=== PATIENT | male | born 1990 ===

== ENCOUNTER 2017-06-02 14:41 | Emergency (ER) | payer MEDICAID ==
[2017-06-02 14:45] VITALS: BP 164/63; PULSE 103; RESP 16; TEMP 98.8; O2SAT 100
--- NOTE | 2017-06-02 15:08 | ED PDOC ---
HPI: Dental Pain/Injury Time Seen by Provider: 06/02/17 14:43 Chief Complaint (Nursing): Dental Pain Chief Complaint (Provider): Dental Pain History Per: Patient History/Exam Limitations: no limitations Onset/Duration Of Symptoms: Days (x1) Current Symptoms Are (Timing): Gone Now Pain Scale Rating Of: 3 Quality: "Pain" Additional Complaint(s): Jacob Cash, a 26 year old male, presents to the ED complaining of left sided facial swelling and pain. The patient states that 3 months ago he sustained a broken tooth and since then the pain has been intermittent. Patient states he has taken advil for pain and used ice therapy for the swelling. Past Medical History Reviewed: Historical Data, Nursing Documentation, Vital Signs Vital Signs: Last Vital Signs Temp 98.8 F 06/02/17 14:44 Pulse 103 H 06/02/17 14:44 Resp 16 06/02/17 14:44 BP 164/63 H 06/02/17 14:44 Pulse Ox 100 06/02/17 14:44 - Medical History PMH: No Chronic Diseases - Surgical History Surgical History: No Surg Hx - Family History Family History: States: Unknown Family Hx - Social History Current smoker - smoking cessation education provided: No (quit 10 months ago) Ex-Smoker (has not smoked in the last 12 months): No Alcohol: None Drugs: Denies - Home Medications Home Medications: Ambulatory Orders Medication Instructions Recorded Amoxicillin 875 mg PO BID #20 tab 06/02/17 Ibuprofen [Motrin Tab] 800 mg PO Q6H PRN #20 tab 06/02/17 - Allergies Allergies/Adverse Reactions: Allergies Allergy/AdvReac Type Severity Reaction Status Date / Time No Known Allergies Allergy Verified 06/02/17 14:46 Review of Systems ROS Statement: Except As Marked, All Systems Reviewed And Found Negative ENT: Positive for: Mouth Swelling (left sided) Physical Exam - Reviewed Nursing Documentation Reviewed: Yes Vital Signs Reviewed: Yes - Physical Exam Appears: Positive for: Non-toxic, No Acute Distress Head Exam: Positive for: ATRAUMATIC, NORMAL INSPECTION, NORMOCEPHALIC Skin: Positive for: Normal Color, Warm, Dry. Negative for: Diaphoresis Eye Exam: Positive for: Normal appearance ENT: Positive for: Other (Fractured left lower tooth with dental decay noted; Mild erythema of the gingiva; No abscess seen or palpated.) Neurologic/Psych: Positive for: Alert, Oriented, Gait - ECG O2 Sat by Pulse Oximetry: 100 (RA) Pulse Ox Interpretation: Normal Medical Decision Making Medical Decision Makin Initial Impression 26 y/o female presenting with left sided facial pain Initial Plan: * Reevaluation 1450 Patient is medically stable and will be discharged home with prescription for antibiotics and pain medication and instructions to follow up with the dentist. Scribe Attestation Documented by Monika Peralta acting as a scribe for Rose Ricks PA-C. Scribe Attestation All medical record entries made by the Scribe were at my direction and personally dictated by me. I have reviewed the chart and agree that the record accurately reflects my personal performance of the history, physical exam, medical decision making, and the department course for this patient. I have also personally directed, reviewed, and agree with the discharge instructions and disposition. Disposition - Clinical Impression Clinical Impression: Dental decay, Toothache - Patient ED Disposition Is Patient to be Admitted: No Counseled Patient/Family Regarding: Diagnosis, Rx Given - Disposition Disposition: Routine/Home Disposition Time: 15:06 Condition: STABLE Prescriptions: Amoxicillin 875 mg PO BID #20 tab Ibuprofen [Motrin Tab] 800 mg PO Q6H PRN #20 tab PRN Reason: Pain Instructions: Toothache (ED) Forms: [facility] ([place]guillan) - POA Present On Arrival: None
== END 2017-06-02 15:06 | disposition home or self-care (01) ==
LOC: H.ER 14:41
DX: K02.9 Dental caries, unspecified (principal); K08.89 Other specified disorders of teeth and supporting structures; S02.5XXA Fracture of tooth (traumatic), initial encounter for closed fracture

== ENCOUNTER 2018-01-01 16:01 | Emergency (ER) | payer MEDICAID ==
[2018-01-01 16:17] VITALS: O2SAT 100
--- NOTE | 2018-01-01 16:25 | ED PDOC ---
HPI: General Adult Time Seen by Provider: 01/01/18 16:20 Chief Complaint (Nursing): Abnormal Skin Integrity Chief Complaint (Provider): Abscess History Per: Patient History/Exam Limitations: no limitations Onset/Duration Of Symptoms: Days Current Symptoms Are (Timing): Still Present Additional Complaint(s): 27 year old male presents to the emergency department with a complaint of an abscess noted to the right axillary region for the past several days. Reports he was showering today when it ruptured and has been draining since. Denies fever or any further medical complaints. Tetanus shot is not up to date Of note, patient has a medical history of HIV and is complaint with antiviral medications. Viral count load undetectable. CD4 count is high as per patient. Past Medical History Reviewed: Historical Data, Nursing Documentation, Vital Signs Vital Signs: Last Vital Signs Temp 98 F 01/01/18 17:47 Pulse 89 01/01/18 17:47 Resp 18 01/01/18 17:47 BP 120/68 01/01/18 17:47 Pulse Ox 100 01/01/18 17:47 - Medical History PMH: HIV (Viral count: load undetectable. CD4 count is high as per patient. ) - Surgical History Surgical History: No Surg Hx - Family History Family History: States: Unknown Family Hx - Social History Current smoker - smoking cessation education provided: No Ex-Smoker (has not smoked in the last 12 months): Yes Alcohol: None Drugs: Denies - Home Medications Home Medications: Ambulatory Orders Medication Instructions Recorded Amoxicillin 875 mg PO BID #20 tab 06/02/17 Ibuprofen [Motrin Tab] 800 mg PO Q6H PRN #20 tab 06/02/17 Cephalexin [Keflex] 500 mg PO Q6 #28 capsule 01/01/18 Sulfamethoxazole/Trimethoprim 2 tab PO BID #28 tab 01/01/18 [Bactrim DS 800 mg-160 mg] - Allergies Allergies/Adverse Reactions: Allergies Allergy/AdvReac Type Severity Reaction Status Date / Time No Known Allergies Allergy Verified 01/01/18 16:14 Review of Systems ROS Statement: Except As Marked, All Systems Reviewed And Found Negative (As per HPI, otherwise negative) Constitutional: Negative for: Fever Skin: Positive for: Other (Abscess to the right axilla) Physical Exam - Reviewed Nursing Documentation Reviewed: Yes Vital Signs Reviewed: Yes - Physical Exam Comments: GENERAL APPEARANCE: Patient is awake, alert, oriented x 3, in mild painful distress. Skin: warm and dry, (+) 6x4 cm erythematous tender fluctuant draining abscess to the right axilla Pulmonary: lungs clear, no rhonchi, no wheezing. Cardiac: regular rate and rhythm, no murmur, no gallop. Abdomen: soft, nontender. Extremities: no deformity, full range of motion, no tenderness. - ECG O2 Sat by Pulse Oximetry: 100 (RA) Pulse Ox Interpretation: Normal Medical Decision Making Medical Decision Making: Time: 1623 Initial impression: Abscess Initial plan: Keflex 500 mg PO Lidocaine 1% 5 ml IJ Bactrim DS 2 tab PO Tetanus 0.5 ml IM Incision and drainage Procedure can be found in I&D tab within chart. Time: 1740 I&D completed by [facility]. Patient tolerated procedure well. Medically clear for discharge with Rx Keflex 500 mg and Bactrim DS 800mg-160 mg. Advised to follow up with primary care physician after 2 days without fail or with Dr. Darío Soriano MD for wound check and packing removal. Advised to take medication as prescribed. Return to the emergency room at any time for any new or worsening symptoms. Patient states he fully agrees with and understands discharge instructions. States that he agrees with the plan and disposition. Verbalized and repeated discharge instructions and plan. I have given the patient opportunity to ask any additional questions. Clinical Impression: Abscess Scribe Attestation: Documented by Sindy Williamson, acting as a scribe for Kellie Finley PA-C. Provider Scribe Attestation: All medical record entries made by the Scribe were at my direction and personally dictated by me. I have reviewed the chart and agree that the record accurately reflects my personal performance of the history, physical exam, medical decision making, and the department course for this patient. I have also personally directed, reviewed, and agree with the discharge instructions and disposition. Disposition - Clinical Impression Clinical Impression: Abscess - Patient ED Disposition Is Patient to be Admitted: No Counseled Patient/Family Regarding: Diagnosis, Need For Followup, Rx Given - Disposition Referrals: Darío Soriano MD [Staff Provider] - Disposition: Routine/Home Disposition Time: 17:40 Condition: STABLE Additional Instructions: Thank you for letting us take care of you today. You were treated for abscess. The emergency medical care you received today was directed at your acute symptoms. If you were prescribed any medication, please fill it and take as directed. It may take several days for your symptoms to resolve. Return to the Emergency Department if your symptoms worsen, do not improve, or if you have any other problems. Please contact your doctor in 2 days for re-evaluation and follow up / or call one of the physicians/clinics you have been referred to that are listed on the Patient Visit Information form that is included in your discharge packet. Bring any paperwork you were given at discharge with you along with any medications you are taking to your follow up visit. Our treatment cannot replace ongoing medical care by a primary care provider (PCP) outside of the emergency department. Thank you for allowing the [facility] team to be part of your care today. 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 - Incision & Drainage Of Abscess Anesthesia: Lidocaine 1% Prep Used: Betadine Procedure: Incised W/Scalpel Blade#: (11), Drained Pus (purulent material), Packed W/Gauze (applied clean dressing)
[2018-01-01] MEDS ORDERED: Tmp-Smz 800 mg-160 mg DS Tab PO STA (16:35)
[2018-01-01] MEDS ORDERED: Lidocaine 1% Inj (20ml) IJ ONE (16:36)
[2018-01-01] MEDS ORDERED: Tdap Vaccine 0.5 ml Vial (10-64 yrs) IM ONE ×2 (16:36→17:05)
[2018-01-01] MEDS ORDERED: Tmp-Smz 800 mg-160 mg DS Tab ONE ×2 (17:04→17:11)
[2018-01-01] MEDS ORDERED: Lidocaine 1% Inj (20ml) ONE (17:05)
[2018-01-01 17:48] VITALS: BP 120/68; PULSE 89; RESP 18; TEMP 98
== END 2018-01-01 17:48 | disposition home or self-care (01) ==
LOC: H.ER 16:01
DX: L02.411 Cutaneous abscess of right axilla (principal)

== ENCOUNTER 2018-03-05 11:16 | Emergency (ER) | payer MEDICAID ==
[2018-03-05 11:49] VITALS: BP 135/66; PULSE 110; RESP 20; TEMP 98.5; O2SAT 100
--- NOTE | 2018-03-05 12:25 | ED PDOC ---
HPI: General Adult Time Seen by Provider: 03/05/18 12:10 Chief Complaint (Nursing): ENT Problem Chief Complaint (Provider): ENT Problem History Per: Patient History/Exam Limitations: no limitations Onset/Duration Of Symptoms: Days (x5) Current Symptoms Are (Timing): Still Present Additional Complaint(s): 27 year old male, with a hx of HIV, presents to the ED for evaluation of throat pain onset five days ago. Patient notes he is non-compliant with HIV medications. He reports being able to tolerate PO, and denies fever and chills. PMD: none provided Past Medical History Reviewed: Historical Data, Nursing Documentation, Vital Signs Vital Signs: Last Vital Signs Temp 98.5 F 03/05/18 11:47 Pulse 110 H 03/05/18 11:47 Resp 20 03/05/18 11:47 BP 135/66 03/05/18 11:47 Pulse Ox 100 03/05/18 16:49 - Medical History PMH: HIV (Viral count: load undetectable. CD4 count is high as per patient. ) - Surgical History Surgical History: No Surg Hx - Family History Family History: States: Unknown Family Hx - Home Medications Home Medications: Ambulatory Orders Medication Instructions Recorded Amoxicillin 875 mg PO BID #20 tab 06/02/17 Ibuprofen [Motrin Tab] 800 mg PO Q6H PRN #20 tab 06/02/17 Cephalexin [Keflex] 500 mg PO Q6 #28 capsule 01/01/18 Sulfamethoxazole/Trimethoprim 2 tab PO BID #28 tab 01/01/18 [Bactrim DS 800 mg-160 mg] Fluconazole 200 mg PO DAILY #7 tablet 03/05/18 Penicillin VK [Penicillin VK Tab] 1 tab PO QID #40 tab 03/05/18 - Allergies Allergies/Adverse Reactions: Allergies Allergy/AdvReac Type Severity Reaction Status Date / Time No Known Allergies Allergy Verified 03/05/18 11:46 Review of Systems ROS Statement: Except As Marked, All Systems Reviewed And Found Negative Constitutional: Negative for: Fever, Chills ENT: Positive for: Throat Pain Physical Exam - Reviewed Nursing Documentation Reviewed: Yes Vital Signs Reviewed: Yes - Physical Exam Appears: Positive for: No Acute Distress (looks hydrated) Head Exam: Positive for: ATRAUMATIC, NORMOCEPHALIC Skin: Positive for: Normal Color, Warm, Dry Eye Exam: Positive for: Normal appearance ENT: Positive for: Pharyngeal Erythema (minimal), Other (diffuse white plaques noted on throat) Neck: Positive for: Normal, Painless ROM, Supple Cardiovascular/Chest: Positive for: Regular Rate, Rhythm Respiratory: Positive for: Normal Breath Sounds. Negative for: Accessory Muscle Use, Respiratory Distress Gastrointestinal/Abdominal: Positive for: Normal Exam, Soft. Negative for: Tenderness Back: Positive for: Normal Inspection Neurologic/Psych: Positive for: Alert, Oriented (x3). Negative for: Motor/ Sensory Deficits - Laboratory Results Result Diagrams: 03/05/18 13:44 03/05/18 13:44 - ECG O2 Sat by Pulse Oximetry: 100 (RA) Pulse Ox Interpretation: Normal - Progress ED Course And Treament: patient strep positive. Advised to start PCN vk and if not improving after 72 hours start fluconazole in conjunction with PCN. Patient will call stacy vaughan today to arrange for f/u next week. ADvised to return to ED for worsening symptoms Medical Decision Making Medical Decision Making: Time: 12:15 Initial Impression: sore throat, r/o strep Initial Plan: --BMP --CBC with differential --Rapid strep 14:30 Strep test: positive Scribe Attestation: Documented by Ashlyn Adame, acting as a scribe for Milena Torres PA-C. Provider Scribe Attestation: All medical record entries made by the Scribe were at my direction and personally dictated by me. I have reviewed the chart and agree that the record accurately reflects my personal performance of the history, physical exam, medical decision making, and the department course for this patient. I have also personally directed, reviewed, and agree with the discharge instructions and disposition. Disposition - Clinical Impression Clinical Impression: Pharyngitis - Patient ED Disposition Is Patient to be Admitted: No - Disposition Disposition: Routine/Home Disposition Time: 14:41 Condition: FAIR Additional Instructions: PLEASE FOLLOW UP WITH [facility] [phone] Prescriptions: Fluconazole 200 mg PO DAILY #7 tablet Penicillin VK [Penicillin VK Tab] 1 tab PO QID #40 tab Instructions: Strep Throat (DC), Thrush (DC) Forms: [facility] (Yi)
[2018-03-05 14:02] LABS: BASO % 0.5 % (0.0-2.0); EOS # 0.1 K/uL (0.0-0.7); EOS % 2.6 % (0.0-4.0); HEMOGLOBIN 12.6 g/dL (12.0-18.0); LYMPH # 1.2 K/uL (1.0-4.3); LYMPH % 25.3 % (20.0-40.0); MEAN CELL VOLUME 87.3 fl (80.0-94.0); MEAN CORPUSCULAR HEMOGLOBIN 29.4 pg (27.0-31.0); MEAN CORPUSCULAR HGB CONC 33.6 g/dL (33.0-37.0); MEAN PLATELET VOLUME 7.2 fl (7.2-11.7); MONO # 0.6 K/uL (0.0-0.8); MONO % 13.2 % (0.0-10.0); NEUT # 2.8 K/uL (1.8-7.0); NEUT % 58.4 % (50.0-75.0); NRBC % 0.1 % (0.0-0.0); RBC 4.31 Mil/uL (4.40-5.90); RED CELL DISTRIBUTION WIDTH 14.2 % (11.5-14.5); WHITE BLOOD COUNT 4.9 K/uL (4.8-10.8)
[2018-03-05 14:11] LABS: BLOOD UREA NITROGEN 12 mg/dl (9-20); CALCIUM 8.3 mg/dL (8.4-10.2); GFR AFRICAN-AMERICAN > 60; GFR NON-AFRICAN AMERICAN > 60
== END 2018-03-05 14:58 | disposition home or self-care (01) ==
LOC: H.ER 11:16
DX: J02.9 Acute pharyngitis, unspecified (principal); B20 Human immunodeficiency virus [HIV] disease

== ENCOUNTER 2018-07-05 19:22 | Emergency (ER) | payer MEDICAID ==
[2018-07-05 19:38] VITALS: RESP 16; O2SAT 100
[2018-07-05 21:01] LABS: ALB/GLOB RATIO 0.8 (1.0-2.1); ALBUMIN 3.2 g/dL (3.5-5.0); ALT/SGPT 37 U/L (21-72); AST/SGOT 30 U/L (17-59); BLOOD UREA NITROGEN 12 mg/dl (9-20); CALCIUM 8.6 mg/dL (8.4-10.2); GFR NON-AFRICAN AMERICAN > 60; LIPASE 39 U/L (23-300)
[2018-07-05 21:05] LABS: BASO % 0.4 % (0.0-2.0); EOS # 0.1 K/uL (0.0-0.7); EOS % 1.1 % (0.0-4.0); HEMOGLOBIN 10.8 g/dL (12.0-18.0); LYMPH # 1.1 K/uL (1.0-4.3); LYMPH % 16.4 % (20.0-40.0); MEAN CORPUSCULAR HEMOGLOBIN 27.4 pg (27.0-31.0); MEAN CORPUSCULAR HGB CONC 32.8 g/dL (33.0-37.0); MEAN PLATELET VOLUME 6.9 fl (7.2-11.7); MONO # 0.8 K/uL (0.0-0.8); MONO % 13.1 % (0.0-10.0); NEUT # 4.5 K/uL (1.8-7.0); NRBC % 0.1 % (0.0-0.0); RBC 3.95 Mil/uL (4.40-5.90); RED CELL DISTRIBUTION WIDTH 13.4 % (11.5-14.5); WHITE BLOOD COUNT 6.5 K/uL (4.8-10.8)
[2018-07-05 21:07] LABS: VENOUS BLOOD GAS BASE EXCESS 1.2 mmol/L (0.0-2.0); VENOUS BLOOD GAS PCO2 44 mmHg (40-60); VENOUS BLOOD GAS PO2 28 mm/Hg (30-55); VENOUS BLOOD PH 7.39 (7.32-7.43)
[2018-07-05 21:10] LABS: MEAN CELL VOLUME 83.4 fl (80.0-94.0)
[2018-07-05 21:17] LABS: URINE BACTERIA RARE (<OCC); URINE BILIRUBIN NEGATIVE (NEGATIVE); URINE BLOOD NEGATIVE (NEGATIVE); URINE CLARITY SLIGHTY-CLOUDY (Clear); URINE COLOR YELLOW (YELLOW); URINE GLUCOSE (UA) NEG (Normal); URINE LEUKOCYTE ESTERASE NEG Leu/uL (Negative); URINE PROTEIN 30 mg/dL (NEGATIVE); URINE UROBILINOGEN 0.2-1.0 mg/dL (0.2-1.0)
[2018-07-05] MEDS ORDERED: Sodium Chloride 0.9% 1,000 ML IV STA (21:26)
--- NOTE | 2018-07-05 22:29 | ED PDOC ---
HPI: General Adult Time Seen by Provider: 07/05/18 19:54 Chief Complaint (Nursing): Abdominal Pain Chief Complaint (Provider): Rash History Per: Patient History/Exam Limitations: no limitations Onset/Duration Of Symptoms: Days (x7) Current Symptoms Are (Timing): Still Present Additional Complaint(s): Jacob Cash is a 27 year old male with a past medical history of HIV who is presenting to the ED for evaluation of rash to groin onset 1 week ago. Patient states that the rash started near his groin and spread down medial thighs towards his knees. He states that rash is not itchy with no pus or drainage. He also reports that over the last couple of days he noticed lesions to his wrists and one on scrotum. Patient says that he looked all over the room and saw no bedbugs and nothing was found on bedbug traps. He states that he lives with his boyfriend and parents who do not have any similar rashes. He denies any fevers, cough, or shortness of breath. Upon further questioning, patient admits that he had diarrhea last week and is HIV positive but has not been on [facility] medications for over a year. Of note, he is requesting an infectious disease specialist. PMD: none provided Past Medical History Reviewed: Historical Data, Nursing Documentation, Vital Signs Vital Signs: Last Vital Signs Temp 98.6 F 07/05/18 19:33 Pulse 92 H 07/05/18 19:33 Resp 16 07/05/18 19:33 BP 125/59 L 07/05/18 19:33 Pulse Ox 100 07/05/18 19:33 - Medical History PMH: HIV (Viral count: load undetectable. CD4 count is high as per patient. ) - Surgical History Surgical History: No Surg Hx - Family History Family History: States: Unknown Family Hx - Social History Current smoker - smoking cessation education provided: No Ex-Smoker (has not smoked in the last 12 months): Yes Alcohol: None Drugs: Denies - Home Medications Home Medications: Ambulatory Orders Medication Instructions Recorded Ibuprofen [Motrin Tab] 800 mg PO Q6H PRN #20 tab 06/02/17 RX: Amoxicillin 875 mg PO BID #20 tab 06/02/17 Cephalexin [Keflex] 500 mg PO Q6 #28 capsule 01/01/18 Sulfamethoxazole/Trimethoprim 2 tab PO BID #28 tab 01/01/18 [Bactrim DS 800 mg-160 mg] Penicillin VK [Penicillin VK Tab] 1 tab PO QID #40 tab 03/05/18 RX: Fluconazole 200 mg PO DAILY #7 tablet 03/05/18 Cephalexin [Keflex] 500 mg PO Q6 #28 capsule 07/05/18 - Allergies Allergies/Adverse Reactions: Allergies Allergy/AdvReac Type Severity Reaction Status Date / Time No Known Allergies Allergy Verified 07/05/18 19:33 Review of Systems ROS Statement: Except As Marked, All Systems Reviewed And Found Negative Constitutional: Negative for: Fever Respiratory: Negative for: Cough, Shortness of Breath Gastrointestinal: Positive for: Diarrhea Skin: Positive for: Rash, Lesions Physical Exam - Reviewed Nursing Documentation Reviewed: Yes Vital Signs Reviewed: Yes - Physical Exam Appears: Positive for: Non-toxic, No Acute Distress Head Exam: Positive for: ATRAUMATIC, NORMAL INSPECTION, NORMOCEPHALIC Skin: Positive for: Normal Color, Warm, Dry, Rash (to wrist and thighs: punctate rash with central scab, no surrounding erythema no drainage no pustules. All lesions appear to be at same stage of healing ) Eye Exam: Positive for: EOMI, Normal appearance, PERRL ENT: Positive for: Normal ENT Inspection Neck: Positive for: Normal, Painless ROM, Supple Cardiovascular/Chest: Positive for: Tachycardia (mild) Gastrointestinal/Abdominal: Positive for: Normal Exam, Soft. Negative for: Tenderness Male Genital Exam: Negative for: other (no penile discharge, no scrotal swelling, no rash to penis) Back: Positive for: Normal Inspection Extremity: Positive for: Normal ROM, Other (see skin exam above ). Negative for: Deformity, Swelling Neurologic/Psych: Positive for: Alert, Oriented. Negative for: Motor/Sensory Deficits - Laboratory Results Result Diagrams: 07/05/18 20:47 07/05/18 20:47 - ECG O2 Sat by Pulse Oximetry: 100 (RA) Pulse Ox Interpretation: Normal Medical Decision Making Medical Decision Making: Time: 20:41 A/P: unclear cause of rash --will give Keflex in ED to prevent cellulitis --Basic labs due to uncontrolled HIV an recent diarrhea --IV fluids due to mild tachycardia --Discussed the need for close infectious disease follow-up and compliance with [facility] medications --Patient agrees --Most likely discharge home unless gross abnormalities in labs Pt discharged home with antibiotics and referral to infectious disease. Return parameters discussed. Scribe Attestation: Documented by Lauren Blake, acting as a scribe for Margie Day MD. Provider Scribe Attestation: All medical record entries made by the Scribe were at my direction and per sonally dictated by me. I have reviewed the chart and agree that the record accurately reflects my personal performance of the history, physical exam, medical decision making, and the department course for this patient. I have also personally directed, reviewed, and agree with the discharge instructions and disposition. Disposition - Clinical Impression Clinical Impression: Rash and nonspecific skin eruption, Cellulitis and abscess of lower extremity - Disposition Referrals: Armando Valentin MD [Staff Provider] - Disposition Time: 23:30 Condition: IMPROVED Additional Instructions: Follow up with infectious disease specialist and pbx inspector as soon as possible. Take medications as prescribed. Return to the emergency department if you are showing signs of infection, trouble breathing, fever, or other new symptoms. Prescriptions: Cephalexin [Keflex] 500 mg PO Q6 #28 capsule Instructions: Cellulitis and Erysipelas (Skin Infections) Forms: [facility] (Guamanian) Print Language: MALIAN
[2018-07-05 23:50] VITALS: BP 122/64; PULSE 90; TEMP 98.4
--- NOTE | 2018-07-06 16:36 | CARD ---
APPROVED REPORT Date of service: 07/05/2018 EKG Measurement Heart [id number] <Conclusion> Sinus tachycardia Otherwise normal ECG
== END 2018-07-05 23:20 | disposition home or self-care (01) ==
LOC: H.ER 19:22
DX: R21 Rash and other nonspecific skin eruption (principal); L03.119 Cellulitis of unspecified part of limb; L02.419 Cutaneous abscess of limb, unspecified; Z21 Asymptomatic human immunodeficiency virus [HIV] infection status; Z87.891 Personal history of nicotine dependence
CPT/HCPCS: 80053; 81003; 82803; 83690; 85025; 93005; 99284; J7030

== ENCOUNTER 2018-07-18 18:36 | Emergency (ER) | payer MEDICAID ==
[2018-07-18 18:43] VITALS: BP 123/62; PULSE 116; RESP 14; TEMP 98.1; O2SAT 100
[2018-07-18] MEDS ORDERED: Sodium Chloride 0.9% 1,000 ML IV STA (19:03)
[2018-07-18] MEDS ORDERED: Atropine-Diphenoxylate 0.025-2.5 mg Tab PO ONE (19:03)
--- NOTE | 2018-07-18 19:05 | ED PDOC ---
HPI: Abdomen Time Seen by Provider: 07/18/18 18:48 Chief Complaint (Nursing): GI Problem History Per: Patient Onset/Duration Of Symptoms: Days (2) Current Symptoms Are (Timing): Still Present Severity: Mild Quality Of Discomfort: Unable To Describe Associated Symptoms: Nausea, Vomiting, Diarrhea. denies: Fever Additional Complaint(s): Nausea vomiting and diarrhea x 2 days. Mild abd pain. Denies fever. Past Medical History Vital Signs: Last Vital Signs Temp 98.1 F 07/18/18 18:41 Pulse 116 H 07/18/18 18:41 Resp 14 07/18/18 18:41 BP 123/62 07/18/18 18:41 Pulse Ox 100 07/18/18 18:41 - Medical History PMH: HIV (Viral count: load undetectable. CD4 count is high as per patient. ) - Family History Family History: States: Unknown Family Hx - Home Medications Home Medications: Ambulatory Orders Medication Instructions Recorded Amoxicillin 875 mg PO BID #20 tab 06/02/17 Ibuprofen [Motrin Tab] 800 mg PO Q6H PRN #20 tab 06/02/17 Cephalexin [Keflex] 500 mg PO Q6 #28 capsule 01/01/18 Sulfamethoxazole/Trimethoprim 2 tab PO BID #28 tab 01/01/18 [Bactrim DS 800 mg-160 mg] Fluconazole 200 mg PO DAILY #7 tablet 03/05/18 Penicillin VK [Penicillin VK Tab] 1 tab PO QID #40 tab 03/05/18 Cephalexin [Keflex] 500 mg PO Q6 #28 capsule 07/05/18 Atropine/Diphenoxylate [Lonox 1 tab PO Q8 #10 tab 07/18/18 0.025 MG-2.5 MG] Ondansetron [Zofran] 4 mg PO Q8H #10 tab 07/18/18 - Allergies Allergies/Adverse Reactions: Allergies Allergy/AdvReac Type Severity Reaction Status Date / Time No Known Allergies Allergy Verified 07/18/18 18:40 Review of Systems ROS Statement: Except As Marked, All Systems Reviewed And Found Negative Gastrointestinal: Positive for: Nausea, Vomiting, Abdominal Pain, Diarrhea Physical Exam - Reviewed Nursing Documentation Reviewed: Yes Vital Signs Reviewed: Yes - Physical Exam Appears: Positive for: Non-toxic, No Acute Distress Head Exam: Positive for: ATRAUMATIC, NORMAL INSPECTION, NORMOCEPHALIC Skin: Positive for: Normal Color, Warm, DRY Eye Exam: Positive for: EOMI, Normal appearance, PERRL ENT: Positive for: Normal ENT Inspection Neck: Positive for: Normal, Painless ROM Cardiovascular/Chest: Positive for: Regular Rate, Rhythm Respiratory: Positive for: CNT, Normal Breath Sounds Gastrointestinal/Abdominal: Positive for: Normal Exam, Soft. Negative for: Tenderness Back: Positive for: Normal Inspection Extremity: Positive for: Normal ROM Neurologic/Psych: Positive for: Alert, Oriented - Laboratory Results Result Diagrams: 07/18/18 19:22 07/18/18 19:22 - ECG O2 Sat by Pulse Oximetry: 100 Disposition - Clinical Impression Clinical Impression: Gastroenteritis - Patient ED Disposition Is Patient to be Admitted: No Counseled Patient/Family Regarding: Studies Performed, Diagnosis, Need For Followup, Rx Given - Disposition Referrals: [facility] [Outside] Disposition: Routine/Home Disposition Time: 20:48 Condition: FAIR Prescriptions: Atropine/Diphenoxylate [Lonox 0.025 MG-2.5 MG] 1 tab PO Q8 #10 tab Ondansetron [Zofran] 4 mg PO Q8H #10 tab Instructions: Viral Gastroenteritis Forms: [facility] (Cuban)
[2018-07-18 19:42] LABS: ALB/GLOB RATIO 0.8 (1.0-2.1); ALBUMIN 3.3 g/dL (3.5-5.0); ALT/SGPT 36 U/L (21-72); AST/SGOT 37 U/L (17-59); BLOOD UREA NITROGEN 11 mg/dl (9-20); CALCIUM 8.3 mg/dL (8.4-10.2); GFR NON-AFRICAN AMERICAN > 60
[2018-07-18 20:04] LABS: BASO % 0.3 % (0.0-2.0); EOS # 0.1 K/uL (0.0-0.7); EOS % 0.9 % (0.0-4.0); HEMOGLOBIN 10.7 g/dL (12.0-18.0); LYMPH # 1.3 K/uL (1.0-4.3); LYMPH % 18.2 % (20.0-40.0); MEAN CELL VOLUME 80.2 fl (80.0-94.0); MEAN CORPUSCULAR HEMOGLOBIN 26.4 pg (27.0-31.0); MEAN CORPUSCULAR HGB CONC 32.9 g/dL (33.0-37.0); MEAN PLATELET VOLUME 7.2 fl (7.2-11.7); MONO # 0.9 K/uL (0.0-0.8); MONO % 12.5 % (0.0-10.0); NEUT # 4.7 K/uL (1.8-7.0); NEUT % 68.1 % (50.0-75.0); NRBC % 0.1 % (0.0-0.0); RBC 4.06 Mil/uL (4.40-5.90); RED CELL DISTRIBUTION WIDTH 14.1 % (11.5-14.5); WHITE BLOOD COUNT 6.9 K/uL (4.8-10.8)
== END 2018-07-18 20:55 | disposition home or self-care (01) ==
LOC: H.ER 18:36
DX: K52.9 Noninfective gastroenteritis and colitis, unspecified (principal)
CPT/HCPCS: 80053; 85025; 96374; 99283; J2405; J7030

== ENCOUNTER 2018-07-28 00:24 | Emergency (ER) | payer MEDICAID ==
[2018-07-28 00:34] VITALS: TEMP 98.5; O2SAT 100
[2018-07-28] MEDS ORDERED: Sodium Chloride 0.9% 1,000 ML IV STA (01:30)
[2018-07-28 02:02] LABS: BASO % 0.2 % (0.0-2.0); EOS # 0.1 K/uL (0.0-0.7); EOS % 1.1 % (0.0-4.0); LYMPH # 1.1 K/uL (1.0-4.3); LYMPH % 14.3 % (20.0-40.0); MEAN CELL VOLUME 79.6 fl (80.0-94.0); MEAN CORPUSCULAR HEMOGLOBIN 25.9 pg (27.0-31.0); MEAN CORPUSCULAR HGB CONC 32.5 g/dL (33.0-37.0); MEAN PLATELET VOLUME 6.7 fl (7.2-11.7); MONO % 12.6 % (0.0-10.0); NEUT # 5.7 K/uL (1.8-7.0); NEUT % 71.8 % (50.0-75.0); NRBC % 0.1 % (0.0-0.0); RBC 4.24 Mil/uL (4.40-5.90); RED CELL DISTRIBUTION WIDTH 14.3 % (11.5-14.5); WHITE BLOOD COUNT 7.9 K/uL (4.8-10.8)
[2018-07-28 02:13] LABS: ALB/GLOB RATIO 0.8 (1.0-2.1); ALBUMIN 3.3 g/dL (3.5-5.0); ALT/SGPT 30 U/L (21-72); AST/SGOT 30 U/L (17-59); BLOOD UREA NITROGEN 9 mg/dl (9-20); CALCIUM 8.5 mg/dL (8.4-10.2); GFR NON-AFRICAN AMERICAN > 60; LIPASE 52 U/L (23-300)
--- NOTE | 2018-07-28 02:16 | ED PDOC ---
HPI:Nausea, Vomiting, Diarrhea Time Seen by Provider: 07/28/18 00:38 Chief Complaint (Nursing): Abdominal Pain Chief Complaint (Provider): Abdominal Pain History Per: Patient History/Exam Limitations: no limitations Onset/Duration Of Symptoms: Days (x30) Associated Symptoms: Vomiting (occasional), Diarrhea, Other (Weight loss) Additional Complaint(s): 27 y/o male with no pmhx presents to ER for evaluation of persistent diarrhea and weight loss associated with occasional vomiting onset 1 month. Patient reports the diarrhea was loose and watery, non bloody. He states he took Lomotil for diarrhea with no improvement and reports 20 lbs of weight loss. Patient states he was seen here in this ED twice in the past month, and this is his third visit for the same complaint. He denies any chest pain, headache or cough. PMD: non provided Past Medical History Reviewed: Historical Data, Nursing Documentation, Vital Signs Vital Signs: Last Vital Signs Temp 98.5 F 07/28/18 00:31 Pulse 110 H 07/28/18 00:31 Resp 16 07/28/18 00:31 BP 132/65 07/28/18 00:31 Pulse Ox 100 07/28/18 00:31 - Medical History PMH: HIV (Viral count: load undetectable. CD4 count is high as per patient. ) - Surgical History Surgical History: No Surg Hx - Family History Family History: States: Unknown Family Hx - Social History Current smoker - smoking cessation education provided: No Alcohol: None Drugs: Denies - Home Medications Home Medications: Ambulatory Orders Medication Instructions Recorded Amoxicillin 875 mg PO BID #20 tab 06/02/17 Ibuprofen [Motrin Tab] 800 mg PO Q6H PRN #20 tab 06/02/17 Cephalexin [Keflex] 500 mg PO Q6 #28 capsule 01/01/18 Sulfamethoxazole/Trimethoprim 2 tab PO BID #28 tab 01/01/18 [Bactrim DS 800 mg-160 mg] Fluconazole 200 mg PO DAILY #7 tablet 03/05/18 Penicillin VK [Penicillin VK Tab] 1 tab PO QID #40 tab 03/05/18 Cephalexin [Keflex] 500 mg PO Q6 #28 capsule 07/05/18 Atropine/Diphenoxylate [Lonox 1 tab PO Q8 #10 tab 07/18/18 0.025 MG-2.5 MG] Benzonatate [Tessalon Perle] 100 mg PO Q8 #10 capsule 07/18/18 Ondansetron [Zofran] 4 mg PO Q8H #10 tab 07/18/18 Dicyclomine [Bentyl] 20 mg PO Q12 PRN #20 tab 07/28/18 Ondansetron ODT [Zofran ODT] 4 mg PO Q6 PRN #8 odt 07/28/18 - Allergies Allergies/Adverse Reactions: Allergies Allergy/AdvReac Type Severity Reaction Status Date / Time No Known Allergies Allergy Verified 07/18/18 18:40 Review of Systems ROS Statement: Except As Marked, All Systems Reviewed And Found Negative Constitutional: Positive for: Weight loss Gastrointestinal: Positive for: Vomiting (occasional), Diarrhea Physical Exam - Reviewed Nursing Documentation Reviewed: Yes Vital Signs Reviewed: Yes - Physical Exam Appears: Positive for: Non-toxic, No Acute Distress Head Exam: Positive for: ATRAUMATIC, NORMOCEPHALIC (Bitemporal muscle waste) Skin: Positive for: Pallor ENT: Positive for: Other (Dry mucous membrane) Cardiovascular/Chest: Positive for: Tachycardia Respiratory: Positive for: Normal Breath Sounds. Negative for: Wheezing Gastrointestinal/Abdominal: Positive for: Normal Exam, Soft, Other (Lesion to abdomen in which patient was told it was folliculitis and was put on Keflex on his 1st visit to the ED). Negative for: Tenderness Back: Positive for: Normal Inspection. Negative for: L CVA Tenderness, R CVA Tenderness Extremity: Positive for: Normal ROM, Other (Left first digit onical mycosis). Negative for: Pedal Edema, Deformity Neurologic/Psych: Positive for: Alert, Oriented (x3) - Laboratory Results Result Diagrams: 07/28/18 01:50 07/28/18 01:50 - ECG O2 Sat by Pulse Oximetry: 100 (RA) Pulse Ox Interpretation: Normal Medical Decision Making Medical Decision Making: Time: 127 Initial Impression: 27 y/o male with pathological weight loss and diarrhea Initial Plan: --CT Abdomen/Pelvis --Labs 0330 Patient initially denies any medical history and after provider asked again, patient informed provided that he has HIV, which he states forgot to mention before. [address] Meier, pending CT Abdomen/Pelvis. Scribe Attestation: Documented by Deila García, acting as a scribe for Olayinka Ray MD. Provider Scribe Attestation: All medical record entries made by the Scribe were at my direction and personally dictated by me. I have reviewed the chart and agree that the record accurately reflects my personal performance of the history, physical exam, medical decision making, and the department course for this patient. I have also personally directed, reviewed, and agree with the discharge instructions and disposition. Disposition - Clinical Impression Clinical Impression: Enteritis - Patient ED Disposition Is Patient to be Admitted: Transfer of Care (to Dr. Meier) - Disposition Referrals: Armando Valentin MD [Staff Provider] - Juan Andrade MD [Staff Provider] - Disposition: Transfer of Care Disposition Time: 07:00 Condition: STABLE Prescriptions: Dicyclomine [Bentyl] 20 mg PO Q12 PRN #20 tab PRN Reason: abdominal pain/diarrhea Ondansetron ODT [Zofran ODT] 4 mg PO Q6 PRN #8 odt PRN Reason: Nausea/Vomiting Forms: [facility] (Mozambican)
[2018-07-28] MEDS ORDERED: Iohexol 240 (50 ml) PO ONE (03:14)
[2018-07-28] MEDS ORDERED: Sodium Chloride 0.9% 50 ML IV ONE (05:22)
[2018-07-28] MEDS ORDERED: Iohexol 300 100 ML IJ ONE (05:22)
--- NOTE | 2018-07-28 07:13 | ED PDOC ---
- Laboratory Results Result Diagrams: 07/28/18 01:50 07/28/18 01:50 - ECG O2 Sat by Pulse Oximetry: 100 (RA) Pulse Ox Interpretation: Normal - Progress Re-evaluation Time: 08:35 Condition: Re-examined, Improved Medical Decision Making Medical Decision Making: Time: 07:00 --Patient transferred to this provider by Dr. Ray pending CT and reevaluation. 07:04 CT Abd & Pelvis with IV Contrast COMMENTS: Left lower lobe groundglass densities of the lungs. Small sliding hiatal hernia. Diffuse thickening of the colon more prominent in the cecum and ascending colon. Surrounding inflammatory fat stranding. No associated perforation or pneumatosis coli. The liver is of uniform attenuation without mass or defect. There is no intra or extrahepatic biliary ductal dilatation. The spleen is normal. The gallbladder is within normal limits. The pancreas is of normal contour and attenuation characteristics. There is no evidence of adrenal mass. Both kidneys demonstrate prompt and equal nephrograms. The kidneys are normal in size, shape and configuration. There is no evidence of renal or ureteral mass. No renal or ureteral calculi are identified. There is no hydroureter or hydronephrosis. No evidence for appendicitis. No evidence for small or large bowel obstruction. There is no evidence of abdominal ascites or lymphadenopathy. There is no evidence of intrinsic or extrinsic bladder mass. There is no pelvic ascites or lymphadenopathy. Images of the lung bases show no evidence of pleural or parenchymal mass. There are no pleural effusions. The bony structures are free of lytic or blastic lesions. IMPRESSION: Left lower lobe groundglass densities of the lungs. Probably mild pneumonic infiltration. Small sliding hiatal hernia. Diffuse thickening of the colon more prominent in the cecum and ascending colon. Surrounding inflammatory fat stranding. No associated perforation or pneumatosis coli. Per patient has no fever, chest pain, or SOB. Scribe Attestation: Documented by Brenda Escamilla acting as a scribe for Gerasim A Orbelyan MD Provider Scribe Attestation: All medical record entries made by the Scribe were at my direction and personally dictated by me. I have reviewed the chart and agree that the record accurately reflects my personal performance of the history, physical exam, medical decision making, and the department course for this patient. I have also personally directed, reviewed, and agree with the discharge instructions and disposition. Disposition Doctor Will See Patient In The: Office Counseled Patient/Family Regarding: Studies Performed, Diagnosis, Need For Followup - Clinical Impression Clinical Impression: Enteritis, Colitis - POA Present On Arrival: None - Disposition Referrals: Armando Valentin MD [Staff Provider] - Juan Andrade MD [Staff Provider] - Disposition: Routine/Home Disposition Time: 08:35 Condition: GOOD Additional Instructions: AIDEE MELENDEZ, thank you for letting us take care of you today. Your provider was Jacek Meier MD and you were treated for DIARRHEA. The emergency medical care you received today was directed at your acute symptoms. If you were prescribed any medication, please fill it and take as directed. It may take several days for your symptoms to resolve. Return to the Emergency Department if your symptoms worsen, do not improve, or if you have any other problems. Please contact your doctor or call one of the physicians/clinics you have been referred to that are listed on the Patient Visit Information form that is included in your discharge packet. Bring any paperwork you were given at discharge with you along with any medications you are taking to your follow up visit. Our treatment cannot replace ongoing medical care by a primary care provi anitra outside of the emergency department. Thank you for allowing the [facility] team to be part of your care today. If you had an X-Ray or CT scan: A Radiologist will review the ED reading if any change in treatment is needed we will contact you. If you had a blood, urine, or wound culture: It will take several days for the results, if any change in treatment is needed we will contact you. If you had an STI test: It will take 48 hours for the results. Please call after 1 week if you have not heard back. Prescriptions: Ciprofloxacin HCl [Cipro] 500 mg PO BID #14 tablet Dicyclomine [Bentyl] 20 mg PO Q12 PRN #20 tab PRN Reason: abdominal pain/diarrhea Metronidazole [Flagyl] 500 mg PO BID #14 tablet Ondansetron ODT [Zofran ODT] 4 mg PO Q6 PRN #8 odt PRN Reason: Nausea/Vomiting Forms: [facility] (Nauruan)
[2018-07-28 09:20] VITALS: BP 123/86; PULSE 98; RESP 18
--- NOTE | 2018-07-28 10:50 | CT ---
Date of service: 07/28/2018 PROCEDURE: CT Abdomen and Pelvis with contrast HISTORY: abd pain, diarrhea, weight loss COMPARISON: None. TECHNIQUE: Following oral and intravenous contrast administration, a CT examination of the abdomen and pelvis performed from the domes of the diaphragms to the symphysis pubis with reformatted datasets provided not only axial but also sagittal and coronal series. Coronal and sagittal reformats were generated. Contrast dose: Omnipaque 300, 90 cc Radiation dose: Total exam DLP = 256.61 mGy-cm. This CT exam was performed using one or more of the following dose reduction techniques: Automated exposure control, adjustment of the mA and/or kV according to patient size, and/or use of iterative reconstruction technique. FINDINGS: LOWER THORAX: Patchy opacification at the left lower lobe may indicate early infiltrate with atelectasis the differential diagnosis here. Clinically correlate further. Retained food is identified at the distal esophagus with trace oral contrast. Underlying lesion is not excluded here. Differential diagnosis is sliding hiatal hernia. LIVER: Unremarkable. No gross lesion or ductal dilatation. GALLBLADDER AND BILE DUCTS: Unremarkable. PANCREAS: Unremarkable. No gross lesion or ductal dilatation. SPLEEN: Unremarkable. ADRENALS: Unremarkable. No mass. KIDNEYS AND URETERS: Unremarkable. No hydronephrosis. No solid mass. VASCULATURE: Unremarkable. No aortic aneurysm. No aortic atherosclerotic calcification or mural plaque present. BOWEL: Stomach is not adequately distended limiting its evaluation. No definite bowel obstruction identified however, the colon appears thick walled diffusely with the ascending through to transverse segments appearing more thickened than the distal large bowel. The cecum was also prominently affected. No small bowel mural thickening. APPENDIX: Not clearly identified. No definitive pattern to suggest appendicitis at this time. PERITONEUM: Unremarkable. No free fluid. No free air. LYMPH NODES: Unremarkable. No enlarged lymph nodes. BLADDER: Unremarkable. REPRODUCTIVE: Unremarkable. BONES: No acute fracture. OTHER FINDINGS: None. IMPRESSION: 1. Mural colonic thickening appears diffuse and suggest pancolitis greater at the right than left hemicolon as discussed above. No evidence of abscess or free intra peritoneal gas collection. No ascites identified. 2. Retained food is questioned at distal esophagus versus sliding hiatal hernia. Clinically correlate further.
== END 2018-07-28 09:00 | disposition home or self-care (01) ==
LOC: H.ER 00:24
DX: K52.9 Noninfective gastroenteritis and colitis, unspecified (principal)
CPT/HCPCS: 74177; 80053; 83605; 83690; 84443; 85025; 86703; 87390; 99283; J7030; Q9966; Q9967

== ENCOUNTER 2018-08-15 18:33 | Emergency (ER) | payer MEDICAID ==
--- NOTE | 2018-08-15 21:20 | ED PDOC ---
HPI: CCC, URI, Sore Throat Time Seen by Provider: 08/15/18 20:19 Chief Complaint (Nursing): ENT Problem Chief Complaint (Provider): ENT problem History Per: Patient History/Exam Limitations: no limitations Onset/Duration Of Symptoms: Days (1x week) Current Symptoms Are (Timing): Still Present Location Of Pain: Throat Associated Symptoms: Sore Throat, Cough. denies: Fever, Chills, Other (night sweats, chest pain, shortness of breath, dizziness, headaches, ear pain) Ear Symptoms: Bilateral: None Severity: Moderate Additional Complaint(s): 27 year old male with a past medical history of HIV presents to the ED for an evaluation of a sore throat ongoing for 1x week. Patient was hospitalized approximately 2x weeks ago for colitis and was discharged home with a prescription for cipro and flagyl, which he completed approximately 1x week ago. Patient does not follow up regularly with PMD and does not take HAART therapy. Patient had a viral load checked when he was hospitalized and it was undetectable. Patient reports developing a sore throat 1x week ago, and he reports having a cough for the past 2x weeks which has slowly progressively worsened. Patient states that he is able to drink liquids, but noticed he had a muffled voice today. Patient denies having fevers, chills, night sweats, shortness of breath, chest pain, dizziness, headaches, and ear pain. PMD: None provided Past Medical History Reviewed: Historical Data, Nursing Documentation, Vital Signs Vital Signs: Last Vital Signs Temp 98.7 F 08/15/18 19:16 Pulse 104 H 08/15/18 19:16 Resp 18 08/15/18 19:16 BP 136/61 08/15/18 19:16 Pulse Ox 100 08/15/18 19:16 SUYAPA Report Viewed: Yes - Medical History PMH: HIV (Viral count: load undetectable. CD4 count is high as per patient. ) - Surgical History Surgical History: No Surg Hx - Family History Family History: States: No Known Family Hx - Social History Current smoker - smoking cessation education provided: No Ex-Smoker (has not smoked in the last 12 months): Yes Alcohol: None Drugs: Denies - Home Medications Home Medications: Ambulatory Orders Medication Instructions Recorded Amoxicillin 875 mg PO BID #20 tab 06/02/17 Ibuprofen [Motrin Tab] 800 mg PO Q6H PRN #20 tab 06/02/17 Cephalexin [Keflex] 500 mg PO Q6 #28 capsule 01/01/18 Sulfamethoxazole/Trimethoprim 2 tab PO BID #28 tab 01/01/18 [Bactrim DS 800 mg-160 mg] Fluconazole 200 mg PO DAILY #7 tablet 03/05/18 Penicillin VK [Penicillin VK Tab] 1 tab PO QID #40 tab 03/05/18 Cephalexin [Keflex] 500 mg PO Q6 #28 capsule 07/05/18 Atropine/Diphenoxylate [Lonox 1 tab PO Q8 #10 tab 07/18/18 0.025 MG-2.5 MG] Benzonatate [Tessalon Perle] 100 mg PO Q8 #10 capsule 07/18/18 Ondansetron [Zofran] 4 mg PO Q8H #10 tab 07/18/18 Ciprofloxacin HCl [Cipro] 500 mg PO BID #14 tablet 07/28/18 Dicyclomine [Bentyl] 20 mg PO Q12 PRN #20 tab 07/28/18 Metronidazole [Flagyl] 500 mg PO BID #14 tablet 07/28/18 Ondansetron ODT [Zofran ODT] 4 mg PO Q6 PRN #8 odt 07/28/18 - Allergies Allergies/Adverse Reactions: Allergies Allergy/AdvReac Type Severity Reaction Status Date / Time No Known Allergies Allergy Verified 07/18/18 18:40 Review of Systems ROS Statement: Except As Marked, All Systems Reviewed And Found Negative Constitutional: Negative for: Fever, Chills, Sweats ENT: Positive for: Throat Pain. Negative for: Ear Pain Cardiovascular: Negative for: Chest Pain Respiratory: Positive for: Cough. Negative for: Shortness of Breath Neurological: Negative for: Headache, Dizziness Physical Exam - Reviewed Nursing Documentation Reviewed: Yes Vital Signs Reviewed: Yes - Physical Exam Appears: Positive for: Non-toxic, Uncomfortable Head Exam: Positive for: ATRAUMATIC, NORMOCEPHALIC ENT: Positive for: TM Is/Are (normal), Pharyngeal Erythema (mild erythema. diffuse thick white exudates throughout entire pharynx and tonsils.) Cardiovascular/Chest: Positive for: Regular Rate, Rhythm Respiratory: Positive for: Normal Breath Sounds Lymphatic: Positive for: Normal Exam Neurologic/Psych: Positive for: Alert, Oriented (3x) - ECG O2 Sat by Pulse Oximetry: 100 (RA) Pulse Ox Interpretation: Normal Medical Decision Making Medical Decision Makin:19 Initial impression: 27 year old male with a sore throat and cough. Initial plan: * rapid strep * XRay chest PA & LAT * fluconazole 200 mg PO once * reevaluation Scribe Attestation: Documented byMargie Butler, acting as a scribe for Fela Russ PA-C. Provider Scribe Attestation: All medical record entries made by the Scribe were at my direction and personally dictated by me. I have reviewed the chart and agree that the record accurately reflects my personal performance of the history, physical exam, medical decision making, and the department course for this patient. I have also personally directed, reviewed, and agree with the discharge instructions and disposition. Disposition - Clinical Impression Clinical Impression: Oral thrush - Disposition Referrals: [facility] [Outside] [facility] [Outside] Condition: STABLE Additional Instructions: Return to ER if you are not able to swallow liquids or if you develop worsening fatigue or fevers. Take Tylenol or Ibuprofen for throat pain. Instructions: Thrush (DC) Forms: [employer] (Mexican) Print Language: WELSH
[2018-08-15 22:13] VITALS: BP 114/72; PULSE 98; RESP 20; TEMP 99.1; O2SAT 100
--- NOTE | 2018-08-16 10:28 | RAD ---
Date of service: 08/15/2018 HISTORY: shortness of breath, cough COMPARISON: No prior. TECHNIQUE: Chest PA and lateral FINDINGS: LUNGS: No active pulmonary disease. PLEURA: No significant pleural effusion identified. No pneumothorax apparent. CARDIOVASCULAR: No aortic atherosclerotic calcification present. Normal cardiac size. No pulmonary vascular congestion. OSSEOUS STRUCTURES: No significant abnormalities. VISUALIZED UPPER ABDOMEN: Normal. OTHER FINDINGS: None. IMPRESSION: No acute cardiopulmonary disease appreciated.
== END 2018-08-15 23:08 | disposition home or self-care (01) ==
LOC: H.ER 18:33
DX: B37.0 Candidal stomatitis (principal); Z87.891 Personal history of nicotine dependence

== ENCOUNTER 2018-10-05 18:26 | Inpatient (IN) | payer MEDICAID ==
[2018-10-05] MEDS ORDERED: Piperacillin/Tazobact 3.375 GM in Sodium Chloride 0.9% 100 ML IVPB STA (19:03)
[2018-10-05] MEDS ORDERED: Piperacillin/Tazobact 3.375 gm Inj IVPB ONE (19:15)
[2018-10-05] MEDS ORDERED: Vancomycin 1 g Inj ONE (19:15)
[2018-10-05 19:52] LABS: BASO # 0.1 K/uL (0.0-0.2); BASO % 0.4 % (0.0-2.0); EOS # 0.1 K/uL (0.0-0.7); HEMOGLOBIN 12.1 g/dL (12.0-18.0); LYMPH # 1.4 K/uL (1.0-4.3); LYMPH % 11.6 % (20.0-40.0); MEAN CELL VOLUME 82.3 fl (80.0-94.0); MEAN CORPUSCULAR HEMOGLOBIN 26.4 pg (27.0-31.0); MEAN CORPUSCULAR HGB CONC 32.1 g/dL (33.0-37.0); MEAN PLATELET VOLUME 7.4 fl (7.2-11.7); MONO % 8.5 % (0.0-10.0); NEUT # 9.2 K/uL (1.8-7.0); NEUT % 78.5 % (50.0-75.0); NRBC % 0.1 % (0.0-0.0); RBC 4.57 Mil/uL (4.40-5.90); RED CELL DISTRIBUTION WIDTH 16.9 % (11.5-14.5); WHITE BLOOD COUNT 11.7 K/uL (4.8-10.8)
--- NOTE | 2018-10-05 19:52 | ED PDOC ---
HPI: Skin/Bite Injury Time Seen by Provider: 10/05/18 18:56 Chief Complaint (Nursing): Abnormal Skin Integrity Chief Complaint (Provider): Abnormal Skin Integrity of b/l Thighs History Per: Patient History/Exam Limitations: no limitations Onset/Duration Of Symptoms: Days (past several) Current Symptoms Are (Timing): Still Present Additional Complaint(s): 27 year old male presents to the ED for evaluation of swelling, redness, pain and on bilateral thighs and right lower quadrant for the past several days associated with a tactile fever and chills. He reports that all masses present are draining discharge. For pain, patient has been taking Naproxen around the clock, last dose two hours prior to arrival. Of note, patient is HIV positive and notes he started taking medications again three weeks ago after following up with Dr. Valentin. PMD: Armando Valentin Past Medical History Reviewed: Historical Data, Nursing Documentation, Vital Signs Vital Signs: Last Vital Signs Temp 99.4 F 10/05/18 19:44 Pulse 106 H 10/05/18 19:44 Resp 18 10/05/18 19:44 BP 126/64 10/05/18 19:44 Pulse Ox 99 10/05/18 19:44 - Medical History PMH: Gastritis, HIV (Viral count: load undetectable. CD4 count is high as per patient. ) Denies: Chronic Kidney Disease - Surgical History Surgical History: No Surg Hx - Family History Family History: States: Unknown Family Hx - Social History Current smoker - smoking cessation education provided: No Ex-Smoker (has not smoked in the last 12 months): Yes Alcohol: None Drugs: Denies - Home Medications Home Medications: Ambulatory Orders Medication Instructions Recorded Elviteg/Cob/Emtri/Tenof Alafen 1 each PO DAILY 10/05/18 [Genvoya Tablet] - Allergies Allergies/Adverse Reactions: Allergies Allergy/AdvReac Type Severity Reaction Status Date / Time No Known Allergies Allergy Verified 07/18/18 18:40 Review of Systems ROS Statement: Except As Marked, All Systems Reviewed And Found Negative Constitutional: Positive for: Fever (tactile), Chills Skin: Positive for: Rash (redness, swelling, pain, and discharge to bilateral thighs and right lower quadrant) Physical Exam - Reviewed Nursing Documentation Reviewed: Yes Vital Signs Reviewed: Yes - Physical Exam Appears: Positive for: Well, Non-toxic, No Acute Distress Head Exam: Positive for: ATRAUMATIC, NORMOCEPHALIC Skin: Positive for: Rash (right lower quadrant: erythematous mass with moderate induration noted with no fluctuance or discharge; bilateral thighs: two large erythematous indurated tender masses without fluctuance and discharge) Eye Exam: Positive for: Normal appearance ENT: Positive for: Normal ENT Inspection Neck: Positive for: Normal, Painless ROM, Supple Cardiovascular/Chest: Positive for: Regular Rate, Rhythm Respiratory: Positive for: Normal Breath Sounds. Negative for: Respiratory Distress Pulses-Dorsalis Pedis (L): 2+ Pulses-Dorsalis Pedis (R): 2+ Gastrointestinal/Abdominal: Positive for: Normal Exam, Soft. Negative for: Tenderness Extremity: Positive for: Normal ROM. Negative for: Calf Tenderness (b/l) Neurologic/Psych: Positive for: Alert, Oriented (x3). Negative for: M otor/Sensory Deficits - Laboratory Results Result Diagrams: 10/05/18 19:39 10/05/18 19:39 - ECG O2 Sat by Pulse Oximetry: 99 (RA) Pulse Ox Interpretation: Normal Medical Decision Making Medical Decision Making: Time: 1902 Initial Impression: cellulitis with early abscess at multiple sites Initial Plan: --VBG shock panel --CMP --CBC with differential --Vancomycin 1gm NS 250ml IVPB --Zosyn 3.375gm NS 100ml IVPB --Blood culture 2144 Case discussed with Lucho FULLER who is covering for Dr. Anton and arrangements were made for admission. Case then discussed with Dr. Valentin, patient's infectious disease doctor, who agrees with plan and care. -------- --------- Scribe Attestation: Documented by Ashlyn Adame, acting as a scribe for Adam Mccullough PA-C. Provider Scribe Attestation: All medical record entries made by the Scribe were at my direction and personally dictated by me. I have reviewed the chart and agree that the record accurately reflects my personal performance of the history, physical exam, medical decision making, and the department course for this patient. I have also personally directed, reviewed, and agree with the discharge instructions and disposition. Disposition - Clinical Impression Clinical Impression: Cellulitis - Patient ED Disposition Is Patient to be Admitted: Yes - Disposition Disposition Time: 19:15 Condition: FAIR
[2018-10-05 19:58] LABS: VENOUS BLOOD GAS BASE EXCESS -6.1 mmol/L (0.0-2.0); VENOUS BLOOD GAS PCO2 69 mmHg (40-60); VENOUS BLOOD GAS PO2 37 mm/Hg (30-55); VENOUS BLOOD PH 7.15 (7.32-7.43)
[2018-10-05 20:02] LABS: ALB/GLOB RATIO 0.9 (1.0-2.1); ALBUMIN 3.9 g/dL (3.5-5.0); ALT/SGPT 25 U/L (21-72); AST/SGOT 25 U/L (17-59); BLOOD UREA NITROGEN 12 mg/dl (9-20); CALCIUM 8.9 mg/dL (8.4-10.2); GFR NON-AFRICAN AMERICAN > 60
[2018-10-05 20:08] LABS: VENOUS BLOOD GAS BASE EXCESS 3.2 mmol/L (0.0-2.0); VENOUS BLOOD GAS PCO2 51 mmHg (40-60); VENOUS BLOOD GAS PO2 23 mm/Hg (30-55); VENOUS BLOOD PH 7.37 (7.32-7.43)
[2018-10-05] MEDS ORDERED: Sodium Chloride 0.9% 1,000 ML IV STA (21:50)
[2018-10-06] MEDS ORDERED: Influenza Vaccine (5 YR UP)/PF 60 MCG/0.5 ML SYR IM ONE (00:08)
[2018-10-06] MEDS: Piperacillin/Tazobact 3.375 GM in Sodium Chloride 0.9% 100 ML IVPB SCH ×4 (04:30→22:59)
[2018-10-06 05:10] LABS: BASO # 0.1 K/uL (0.0-0.2); BASO % 0.6 % (0.0-2.0); EOS # 0.2 K/uL (0.0-0.7); EOS % 2.4 % (0.0-4.0); HEMOGLOBIN 11.3 g/dL (12.0-18.0); LYMPH % 10.8 % (20.0-40.0); MEAN CELL VOLUME 82.4 fl (80.0-94.0); MEAN CORPUSCULAR HEMOGLOBIN 26.8 pg (27.0-31.0); MEAN CORPUSCULAR HGB CONC 32.6 g/dL (33.0-37.0); MEAN PLATELET VOLUME 7.3 fl (7.2-11.7); MONO % 10.3 % (0.0-10.0); NEUT # 7.3 K/uL (1.8-7.0); NEUT % 75.9 % (50.0-75.0); RBC 4.23 Mil/uL (4.40-5.90); RED CELL DISTRIBUTION WIDTH 17.1 % (11.5-14.5); WHITE BLOOD COUNT 9.6 K/uL (4.8-10.8)
[2018-10-06 05:19] LABS: ALB/GLOB RATIO 0.9 (1.0-2.1); ALBUMIN 3.5 g/dL (3.5-5.0); ALT/SGPT 25 U/L (21-72); AST/SGOT 31 U/L (17-59); BLOOD UREA NITROGEN 10 mg/dl (9-20); CALCIUM 8.8 mg/dL (8.4-10.2); GFR NON-AFRICAN AMERICAN > 60
[2018-10-06] MEDS ORDERED: Influenza Vaccine 60 mcg/0.5 mL SYR (4YR UP) IM ONE (06:00)
[2018-10-06] MEDS ORDERED: Pneumococcal 23-Valent Vaccine IM ONE (06:00)
[2018-10-06] MEDS: Pantoprazole 40 mg EC Tab PO SCH (08:42)
--- NOTE | 2018-10-06 10:19 | CP.PCM.HP ---
History of Present Illness - History of Present Illness History of Present Illness: 27 year old male w/ PMHx of HIV presented to the ED for evaluation of swelling, redness, pain and on bilateral thighs and right lower quadrant for the past several days associated with a tactile fever and chills. Patient evaluated and admitted for cellulitis and possible abscess. Patient states improvement since admission though still with pain. States it began when he picked his scabs from previous bug bites. No current fever or chills. No other complaints at this time. meds: as per chart allergies: as per chart fam hx: non contributory Present on Admission - Present on Admission Any Indicators Present on Admission: No Review of Systems - Review of Systems All systems: reviewed and no additional remarkable complaints except (mentioned above) Past Patient History - Infectious Disease Hx of Infectious Diseases: None - Past Medical History & Family History Past Medical History?: Yes - Past Social History Smoking Status: Light Smoker < 10 Cigarettes Daily - CARDIAC Hx Cardiac Disorders: Yes (heart murmur as baby) - PULMONARY Hx Respiratory Disorders: No - NEUROLOGICAL Hx Neurological Disorder: No - HEENT Hx HEENT Problems: No - RENAL Hx Chronic Kidney Disease: No - ENDOCRINE/METABOLIC Hx Endocrine Disorders: No - HEMATOLOGICAL/ONCOLOGICAL Hx Blood Disorders: Yes Hx Human Immunodeficiency Virus (HIV): Yes (Viral count: load undetectable. CD4 count is high as per patient. ) - INTEGUMENTARY Hx Dermatological Problems: No - MUSCULOSKELETAL/RHEUMATOLOGICAL Hx Musculoskeletal Disorders: No Hx Falls: No - GASTROINTESTINAL Hx Gastrointestinal Disorders: Yes Hx Gastritis: Yes - GENITOURINARY/GYNECOLOGICAL Hx Genitourinary Disorders: No - PSYCHIATRIC Hx Psychophysiologic Disorder: No Hx Substance Use: No - SURGICAL HISTORY Hx Surgeries: No - ANESTHESIA Hx Anesthesia: No Hx Anesthesia Reactions: No Hx Malignant Hyperthermia: No Has any member of the family had a problem w/ anesthesia?: No Meds Allergies/Adverse Reactions: Allergies Allergy/AdvReac Type Severity Reaction Status Date / Time No Known Allergies Allergy Verified 07/18/18 18:40 Physical Exam - Constitutional Appears: Non-toxic, No Acute Distress - Head Exam Head Exam: NORMAL INSPECTION - Eye Exam Eye Exam: Normal appearance - Respiratory Exam Respiratory Exam: NORMAL BREATHING PATTERN - Cardiovascular Exam Cardiovascular Exam: +S1, +S2 - GI/Abdominal Exam GI & Abdominal Exam: Soft - Neurological Exam Neurological exam: Alert, Oriented x3 - Skin Skin Exam: Normal Color, Warm Additional comments: multiple sites of erythematous lesions on bilateral thighs Results - Vital Signs Recent Vital Signs: Last Vital Signs Temp 97.8 F 10/06/18 08:20 Pulse 91 H 10/06/18 08:20 Resp 20 10/06/18 08:20 BP 117/60 10/06/18 08:20 Pulse Ox 98 10/06/18 08:20 - Labs Result Diagrams: 10/06/18 04:55 10/06/18 04:55 Labs: Laboratory Results - last 24 hr 10/05/18 10/05/18 10/05/18 19:39 19:39 19:50 WBC 11.7 H RBC 4.57 Hgb 12.1 Hct 37.6 MCV 82.3 D MCH 26.4 L MCHC 32.1 L RDW 16.9 H Plt Count 509 H MPV 7.4 Neut % (Auto) 78.5 H Lymph % (Auto) 11.6 L [place] % (Auto) 8.5 Eos % (Auto) 1.0 Baso % (Auto) 0.4 Neut # (Auto) 9.2 H Lymph # (Auto) 1.4 [place] # (Auto) 1.0 H Eos # (Auto) 0.1 Baso # (Auto) 0.1 pO2 37 VBG pH 7.15 L* VBG pCO2 69 H* VBG HCO3 18.9 VBG Total CO2 26.1 VBG O2 Sat (Calc) 59.8 VBG Base Excess -6.1 L VBG Potassium Glucose 95 Lactate 1.0 FiO2 21.0 Crit Value Called To Adam conroy Crit Value Called By Eduard Crit Value Read Back Y Blood Gas Notified Time 1956 Sodium 137 125.0 L Potassium 4.2 Chloride 99 101.0 Carbon Dioxide 26 Anion Gap 16 BUN 12 Creatinine 0.9 Est GFR ( Amer) > 60 Est GFR (Non-Af Amer) > 60 Random Glucose 105 Calcium 8.9 Total Bilirubin 0.4 AST 25 ALT 25 Alkaline Phosphatase 106 Total Protein 8.2 Albumin 3.9 Globulin 4.3 H Albumin/Globulin Ratio 0.9 L Venous Blood Potassium 10/05/18 10/06/18 10/06/18 20:04 04:55 04:55 WBC 9.6 RBC 4.23 L Hgb 11.3 L Hct 34.8 L MCV 82.4 MCH 26.8 L MCHC 32.6 L RDW 17.1 H Plt Count 465 H MPV 7.3 Neut % (Auto) 75.9 H Lymph % (Auto) 10.8 L [place] % (Auto) 10.3 H Eos % (Auto) 2.4 Baso % (Auto) 0.6 Neut # (Auto) 7.3 H Lymph # (Auto) 1.0 [place] # (Auto) 1.0 H Eos # (Auto) 0.2 Baso # (Auto) 0.1 pO2 23 L VBG pH 7.37 VBG pCO2 51 VBG HCO3 26.0 VBG Total CO2 31.1 H VBG O2 Sat (Calc) 40.2 VBG Base Excess 3.2 H VBG Potassium 4.0 Glucose 95 Lactate 0.8 FiO2 21.0 Crit Value Called To Crit Value Called By Crit Value Read Back Blood Gas Notified Time Sodium 135.0 136 Potassium 4.3 Chloride 104.0 101 Carbon Dioxide 25 Anion Gap 14 BUN 10 Creatinine 0.8 Est GFR ( Amer) > 60 Est GFR (Non-Af Amer) > 60 Random Glucose 94 Calcium 8.8 Total Bilirubin 0.3 AST 31 ALT 25 Alkaline Phosphatase 88 Total Protein 7.5 Albumin 3.5 Globulin 4.0 H Albumin/Globulin Ratio 0.9 L Venous Blood Potassium 4.0 Assessment & Plan (1) Cellulitis Status: Acute (2) HIV (human immunodeficiency virus infection) Status: Chronic - Assessment and Plan (Free Text) Plan: available diagnostic data reviewed monitor labs monitor vitals cont IV abx f/u cultures ID consulted, appreciate recommendations rest of plan as ordered
[2018-10-06] MEDS: [UNRECOGNIZED DRUG - OTHER] PO SCH (12:43)
--- NOTE | 2018-10-06 16:50 | CP.PCM.CON ---
History of Present Illness - History of Present Illness History of Present Illness: 27 year old male presents to the ED for evaluation of swelling, redness, pain and on bilateral thighs and right lower quadrant for the past several days associated with a tactile fever and chills. He had multiple bites which became infected after recent trip to [facility] Patient is HIV positive and notes he started taking medications again three weeks ago - Medical History PMH: Gastritis, HIV (Viral count: load undetectable. CD4 count is high as per patient. ) Denies: Chronic Kidney Disease Review of Systems - Review of Systems All systems: reviewed and no additional remarkable complaints except - Constitutional Constitutional: As Per HPI, Chills, Fever - EENT Eyes: absent: As Per HPI, Blind Spots, Blurred Vision, Change in Vision, D ecreased Night Vision, Diplopia, Discharge, Dry Eye, Exophthalmos, Floaters, Irritation, Itchy Eyes, Loss of Peripheral Vision, Pain, Photophobia, Requires Corrective Lenses, Sees Flashes, Spots in Vision, Tunnel Vision, Other Visual Disturbances, Loss of Vision, Other Ears: absent: As Per HPI, Decreased Hearing, Ear Discharge, Ear Pain, Tinnitus, Abnormal Hearing, Disequilibrium, Dizziness, Other Nose/Mouth/Throat: absent: As Per HPI, Epistaxis, Nasal Congestion, Nasal Discharge, Nasal Obstruction, Nasal Trauma, Nose Pain, Post Nasal Drip, Sinus Pain, Sinus Pressure, Bleeding Gums, Change in Voice, Dental Pain, Dry Mouth, Dysphagia, Halitosis, Hoarsness, Lip Swelling, Mouth Lesions, Mouth Pain, Odynophagia, Sore Throat, Throat Swelling, Tongue Swelling, Facial Pain, Neck Pain, Neck Mass, Other - Cardiovascular Cardiovascular: absent: As Per HPI, Acrocyanosis, Chest Pain, Chest Pain at Rest, Chest Pain with Activity, Claudication, Diaphoresis, Dyspnea, Dyspnea on Exertion, Edema, Irregular Heart Rhythm, Pain Radiating to Arm/Neck/Jaw, Leg Edema, Leg Ulcers, Lightheadedness, Orthopnea, Palpitations, Paroxysmal Nocturnal Dyspnea, Pedal Edema, Radiating Pain, Rapid Heart Rate, Slow Heart Rate, Syncope, Other - Respiratory Respiratory: absent: As Per HPI, Cough, Dyspnea, Hemoptysis, Dyspnea on Exertion, Wheezing, Snoring, Stridor, Pain on Inspiration, Chest Congestion, Excessive Mucous Production, Change in Mucous Color, Pain with Coughing, Other - Gastrointestinal Gastrointestinal: absent: As Per HPI, Abdominal Pain, Belching, Bloating, Change in Bowel Habits, Change in Stool Character, Coffee Ground Emesis, Constipation, Cramping, Diarrhea, Dyspepsia, Dysphagia, Early Satiety, Excessive Flatus, Fecal Incontinence, Heartburn, Hematemesis, Hematochezia, Loose Stools, Melena, Nausea, Odynophagia, Temesmus, Vomiting, Other - Genitourinary Genitourinary: absent: As Per HPI, Change in Urinary Stream, Difficulty Urinating, Dysuria, Flank Pain, Hematuria, Pyuria, Nocturia, Urinary Incontinence, Urinary Frequency, Urinary Hesitance, Urinary Urgency, Voiding Freq/Small Amts, Freq UTI, Hx Renal/Bladder Calculi, Hx /Renal Surgery, Bladder Distension, Other - Musculoskeletal Musculoskeletal: absent: As Per HPI, Abnormal Gait, Arthralgias, Atrophy, Back Pain, Deformity, Joint Swelling, Limited Range of Motion, Loss of Height, Muscle Cramps, Muscle Weakness, Myalgias, Neck Pain, Numbness, Radiating Pain into Limb, Stiffness, Tingling, Other - Integumentary Integumentary: As Per HPI, Skin Pain, Wounds - Neurological Neurological: absent: As Per HPI, Abnormal Gait, Abnormal Hearing, Abnormal Movements, Abnormal Speech, Behavioral Changes, Burning Sensations, Confusion, Convulsions, Disequilibrium, Dizziness, Numbness, Focal Weakness, Frequent F alls, Headaches, Lack of Coordination, Loss of Vision, Memory Loss, Paresthesias, Radicular Pain, Restless Legs, Sensory Deficit, Syncope, Tingling, Tremor, Vertigo, Weakness, Other Visual Disturbances, Other - Psychiatric Psychiatric: absent: As Per HPI, Abnormal Sleep Pattern, Anhedonia, Anxiety, Auditory Hallucinations, Behavioral Changes, Change in Appetite, Change in Libido, Confusion, Depression, Difficulty Concentrating, Hallucinations, Homicidal Ideation, Hopelessness, Irritability, Memory Loss, Mood Swings, Panic Attacks, Paranoia, Suicidal Ideation, Visual Hallucinations, Tactile Hallucinations, Other - Endocrine Endocrine: absent: As Per HPI, Change in Body Appearance, Change in Libido, Cold Intolorance, Deepening of Voice, Excessive Sweating, Fatigue, Flushing, Heat Intolorance, Increase in Ring/Shoe/Hat Size, Palpitations, Polydipsia, Polyphagia, Polyuria, Other - Hematologic/Lymphatic Hematologic: absent: As Per HPI, Easy Bleeding, Easy Bruising, Lymphadenopathy, Other Past Patient History - Infectious Disease Hx of Infectious Diseases: None - Past Medical History & Family History Past Medical History?: Yes - Past Social History Smoking Status: Light Smoker < 10 Cigarettes Daily - CARDIAC Hx Cardiac Disorders: Yes (heart murmur as baby) - PULMONARY Hx Respiratory Disorders: No - NEUROLOGICAL Hx Neurological Disorder: No - HEENT Hx HEENT Problems: No - RENAL Hx Chronic Kidney Disease: No - ENDOCRINE/METABOLIC Hx Endocrine Disorders: No - HEMATOLOGICAL/ONCOLOGICAL Hx Blood Disorders: Yes Hx Human Immunodeficiency Virus (HIV): Yes (Viral count: load undetectable. CD4 count is high as per patient. ) - INTEGUMENTARY Hx Dermatological Problems: No - MUSCULOSKELETAL/RHEUMATOLOGICAL Hx Musculoskeletal Disorders: No Hx Falls: No - GASTROINTESTINAL Hx Gastrointestinal Disorders: Yes Hx Gastritis: Yes - GENITOURINARY/GYNECOLOGICAL Hx Genitourinary Disorders: No - PSYCHIATRIC Hx Psychophysiologic Disorder: No Hx Substance Use: No - SURGICAL HISTORY Hx Surgeries: No - ANESTHESIA Hx Anesthesia: No Hx Anesthesia Reactions: No Hx Malignant Hyperthermia: No Has any member of the family had a problem w/ anesthesia?: No Meds Allergies/Adverse Reactions: Allergies Allergy/AdvReac Type Severity Reaction Status Date / Time No Known Allergies Allergy Verified 07/18/18 18:40 - Medications Medications: Current Medications Acetaminophen (Tylenol 325mg Tab) 650 mg PO Q6 PRN PRN Reason: Fever >100.4 F Acetaminophen (Tylenol 325mg Tab) 650 mg PO Q4 PRN PRN Reason: Pain, Mild (1-3) Last Admin: 10/06/18 08:56 Dose: 650 mg Home Med (Elviteg/Cob/Emtri/Tenof Alafen [Genvoya Tablet]) 1 each PO DAILY MEAGHAN Last Admin: 10/06/18 12:43 Dose: 1 each Piperacillin Sod/Tazobactam (Sod 3.375 gm/ Sodium Chloride) 100 mls @ 100 mls/hr IVPB Q6 MEAGHAN; Protocol Last Admin: 10/06/18 15:29 Dose: 100 mls/hr Vancomycin HCl 1 gm/ Sodium (Chloride) 250 mls @ 166.667 mls/hr IVPB Q12 MEAGHAN; Protocol Ondansetron HCl (Zofran Inj) 4 mg IVP Q4 PRN PRN Reason: Nausea/Vomiting Pantoprazole Sodium (Protonix Ec Tab) 40 mg PO DAILY MEAGHAN Last Admin: 10/06/18 08:42 Dose: 40 mg Physical Exam - Constitutional Appears: Non-toxic, Chronically Ill - Head Exam Head Exam: NORMOCEPHALIC - Eye Exam Eye Exam: absent: Scleral icterus - ENT Exam ENT Exam: Mucous Membranes Dry, Normal External Ear Exam - Neck Exam Neck exam: Negative for: Lymphadenopathy - Respiratory Exam Respiratory Exam: Decreased Breath Sounds - Cardiovascular Exam Cardiovascular Exam: REGULAR RHYTHM - GI/Abdominal Exam GI & Abdominal Exam: Diminished Bowel Sounds, Soft. absent: Tenderness - Rectal Exam Rectal Exam: Deferred - Exam Exam: NORMAL INSPECTION - Extremities Exam Extremities exam: Positive for: pedal pulses present. Negative for: calf tenderness, pedal edema, tenderness - Back Exam Back exam: absent: CVA tenderness (L), CVA tenderness (R) - Neurological Exam Neurological exam: Alert, CN II-XII Intact, Oriented x3, Reflexes Normal - Psychiatric Exam Psychiatric exam: Normal Mood - Skin Skin Exam: Rash Additional comments: multiple infected maculopapular lesions on thighs and RLQ Results - Vital Signs Recent Vital Signs: Last Vital Signs Temp 98 F 10/06/18 16:27 Pulse 104 H 10/06/18 16:27 Resp 20 10/06/18 16:27 BP 112/66 10/06/18 16:27 Pulse Ox 98 10/06/18 16:27 - Labs Result Diagrams: 10/06/18 04:55 10/06/18 04:55 Labs: Laboratory Results - last 24 hr 10/05/18 10/05/18 10/05/18 19:39 19:39 19:50 WBC 11.7 H RBC 4.57 Hgb 12.1 Hct 37.6 MCV 82.3 D MCH 26.4 L MCHC 32.1 L RDW 16.9 H Plt Count 509 H MPV 7.4 Neut % (Auto) 78.5 H Lymph % (Auto) 11.6 L [place] % (Auto) 8.5 Eos % (Auto) 1.0 Baso % (Auto) 0.4 Neut # (Auto) 9.2 H Lymph # (Auto) 1.4 [place] # (Auto) 1.0 H Eos # (Auto) 0.1 Baso # (Auto) 0.1 pO2 37 VBG pH 7.15 L* VBG pCO2 69 H* VBG HCO3 18.9 VBG Total CO2 26.1 VBG O2 Sat (Calc) 59.8 VBG Base Excess -6.1 L VBG Potassium Glucose 95 Lactate 1.0 FiO2 21.0 Crit Value Called To Adam conroy Crit Value Called By Eduard Crit Value Read Back Y Blood Gas Notified Time 1956 Sodium 137 125.0 L Potassium 4.2 Chloride 99 101.0 Carbon Dioxide 26 Anion Gap 16 BUN 12 Creatinine 0.9 Est GFR ( Amer) > 60 Est GFR (Non-Af Amer) > 60 Random Glucose 105 Calcium 8.9 Total Bilirubin 0.4 AST 25 ALT 25 Alkaline Phosphatase 106 Total Protein 8.2 Albumin 3.9 Globulin 4.3 H Albumin/Globulin Ratio 0.9 L Venous Blood Potassium 10/05/18 10/06/18 10/06/18 20:04 04:55 04:55 WBC 9.6 RBC 4.23 L Hgb 11.3 L Hct 34.8 L MCV 82.4 MCH 26.8 L MCHC 32.6 L RDW 17.1 H Plt Count 465 H MPV 7.3 Neut % (Auto) 75.9 H Lymph % (Auto) 10.8 L [place] % (Auto) 10.3 H Eos % (Auto) 2.4 Baso % (Auto) 0.6 Neut # (Auto) 7.3 H Lymph # (Auto) 1.0 [place] # (Auto) 1.0 H Eos # (Auto) 0.2 Baso # (Auto) 0.1 pO2 23 L VBG pH 7.37 VBG pCO2 51 VBG HCO3 26.0 VBG Total CO2 31.1 H VBG O2 Sat (Calc) 40.2 VBG Base Excess 3.2 H VBG Potassium 4.0 Glucose 95 Lactate 0.8 FiO2 21.0 Crit Value Called To Crit Value Called By Crit Value Read Back Blood Gas Notified Time Sodium 135.0 136 Potassium 4.3 Chloride 104.0 101 Carbon Dioxide 25 Anion Gap 14 BUN 10 Creatinine 0.8 Est GFR ( Amer) > 60 Est GFR (Non-Af Amer) > 60 Random Glucose 94 Calcium 8.8 Total Bilirubin 0.3 AST 31 ALT 25 Alkaline Phosphatase 88 Total Protein 7.5 Albumin 3.5 Globulin 4.0 H Albumin/Globulin Ratio 0.9 L Venous Blood Potassium 4.0 Assessment & Plan (1) HIV (human immunodeficiency virus infection) Status: Acute (2) Cellulitis Status: Acute (3) Abscess Status: Acute (4) Cellulitis and abscess of lower extremity Status: Acute - Assessment and Plan (Free Text) Assessment: check cultures start IV antibiotics cont HAART
[2018-10-07] MEDS: Piperacillin/Tazobact 3.375 GM in Sodium Chloride 0.9% 100 ML IVPB SCH ×4 (03:59→23:11)
[2018-10-07] MEDS: [UNRECOGNIZED DRUG - OTHER] PO SCH (08:39)
[2018-10-07] MEDS: Pantoprazole 40 mg EC Tab PO SCH (08:39)
--- NOTE | 2018-10-07 22:22 | CP.PCM.PN ---
Subjective - Date & Time of Evaluation Date of Evaluation: 10/07/18 Time of Evaluation: 11:00 - Subjective Subjective: Patient remains stable. Has no fever Objective - Vital Signs/Intake and Output Vital Signs (last 24 hours): Temp Pulse Resp BP Pulse Ox 97.9 F 101 H 19 111/60 96 10/07/18 17:01 10/07/18 17:01 10/07/18 17:01 10/07/18 17:01 10/07/18 17:01 - Medications Medications: Current Medications Acetaminophen (Tylenol 325mg Tab) 650 mg PO Q6 PRN PRN Reason: Fever >100.4 F Acetaminophen (Tylenol 325mg Tab) 650 mg PO Q4 PRN PRN Reason: Pain, Mild (1-3) Last Admin: 10/06/18 18:15 Dose: 650 mg Home Med (Elviteg/Cob/Emtri/Tenof Alafen [Genvoya Tablet]) 1 each PO DAILY MEAGHAN Last Admin: 10/07/18 08:39 Dose: 1 each Piperacillin Sod/Tazobactam (Sod 3.375 gm/ Sodium Chloride) 100 mls @ 100 mls/hr IVPB Q6 MEAGHAN; Protocol Last Admin: 10/07/18 17:08 Dose: 100 mls/hr Vancomycin HCl 1 gm/ Sodium (Chloride) 250 mls @ 166.667 mls/hr IVPB Q12 MEAGHAN; Protocol Last Admin: 10/07/18 21:10 Dose: 166.667 mls/hr Ketorolac Tromethamine (Toradol) 30 mg IVP Q6 PRN PRN Reason: Pain, moderate (4-7) Last Admin: 10/07/18 21:05 Dose: 30 mg Ondansetron HCl (Zofran Inj) 4 mg IVP Q4 PRN PRN Reason: Nausea/Vomiting Pantoprazole Sodium (Protonix Ec Tab) 40 mg PO DAILY MEAGHAN Last Admin: 10/07/18 08:39 Dose: 40 mg - Labs Labs: 10/06/18 04:55 10/06/18 04:55 - Head Exam Head Exam: NORMAL INSPECTION - Eye Exam Eye Exam: Normal appearance - ENT Exam ENT Exam: Mucous Membranes Moist - Respiratory Exam Respiratory Exam: Clear to Ausculation Bilateral - Cardiovascular Exam Cardiovascular Exam: REGULAR RHYTHM - Neurological Exam Neurological Exam: Awake - Skin Additional comments: multiple abscesses on the abd area Assessment and Plan (1) Abscess Status: Acute (2) MRSA (methicillin resistant staph aureus) culture positive Status: Acute (3) HIV (human immunodeficiency virus infection) Status: Chronic - Assessment and Plan (Free Text) Plan: Cont meds Cont tx Iv antibiotics
--- NOTE | 2018-10-07 22:55 | PQF ---
PROVIDER RESPONSE TEXT: Patients last recorded CD4 count was >300 According to CDC criteria he would not be considered AIDS Despite this he clearly has immune dysfunction with severe symptomatic skin/ soft tissue infection He is symptomatic HIV positive REVIEWER QUERY TEXT: HIV Clarification and Associated Conditions HIV (Human immunodeficiency virus) is documented in the medical record. Please specify the type Such as: -- Asymptomatic HIV / HIV positive only -- Symptomatic HIV/ AIDS -- Other, please specify Also please include any associated conditions, if applicable. The patient's Clinical Indicators include: Admitted with multiple infected maculopapular lesions on thighs and RLQ . He had multiple bites which became infected after recent trip to [facility] as per ID consult. Lymphocyte subset ordered and pending results Rx: Query created by: Viridiana Harrell on 10/07/2018 9:51 AM Electronically signed by: Armando Valentin MD 10/07/2018 10:51 PM
[2018-10-08] MEDS: Piperacillin/Tazobact 3.375 GM in Sodium Chloride 0.9% 100 ML IVPB SCH ×4 (04:56→23:34)
[2018-10-08 08:34] LABS: % CD4 (T HELPER CELL) 1 Percent (30-61); % CD8 (SUPPRESSOR T CELL) 64 Percent (12-42); ABSOLUTE CD4 CELLS <20 Cells/mcL (490-1740); ABSOLUTE CD8 CELLS 710 Cells/mcL (180-1170); ABSOLUTE LYMPHOCYTES 1111 Cells/mcL (850-3900); HELPER/SUPPRESSOR RATIO 0.02 Ratio (0.86-5.00)
[2018-10-08] MEDS: Pantoprazole 40 mg EC Tab PO SCH (10:20)
[2018-10-08] MEDS: [UNRECOGNIZED DRUG - OTHER] PO SCH (10:20)
--- NOTE | 2018-10-08 13:03 | CP.PCM.PN ---
Subjective - Date & Time of Evaluation Date of Evaluation: 10/08/18 Time of Evaluation: 09:00 - Subjective Subjective: less drainage no fever Objective - Vital Signs/Intake and Output Vital Signs (last 24 hours): Temp Pulse Resp BP Pulse Ox 97.1 F L 90 18 106/59 L 98 10/08/18 00:15 10/08/18 00:15 10/08/18 00:15 10/08/18 00:15 10/08/18 00:15 - Medications Medications: Current Medications Acetaminophen (Tylenol 325mg Tab) 650 mg PO Q6 PRN PRN Reason: Fever >100.4 F Acetaminophen (Tylenol 325mg Tab) 650 mg PO Q4 PRN PRN Reason: Pain, Mild (1-3) Last Admin: 10/06/18 18:15 Dose: 650 mg Home Med (Elviteg/Cob/Emtri/Tenof Alafen [Genvoya Tablet]) 1 each PO DAILY MEAGHAN Last Admin: 10/08/18 10:20 Dose: 1 each Piperacillin Sod/Tazobactam (Sod 3.375 gm/ Sodium Chloride) 100 mls @ 100 mls/hr IVPB Q6 MEAGHAN; Protocol Last Admin: 10/08/18 10:21 Dose: 100 mls/hr Vancomycin HCl 1 gm/ Sodium (Chloride) 250 mls @ 166.667 mls/hr IVPB Q12 MEAGHAN; Protocol Last Admin: 10/08/18 10:21 Dose: 166.667 mls/hr Ketorolac Tromethamine (Toradol) 30 mg IVP Q6 PRN PRN Reason: Pain, moderate (4-7) Last Admin: 10/07/18 21:05 Dose: 30 mg Ondansetron HCl (Zofran Inj) 4 mg IVP Q4 PRN PRN Reason: Nausea/Vomiting Pantoprazole Sodium (Protonix Ec Tab) 40 mg PO DAILY MEAGHAN Last Admin: 10/08/18 10:20 Dose: 40 mg - Labs Labs: 10/06/18 04:55 10/06/18 04:55 - Constitutional Appears: Well - Head Exam Head Exam: ATRAUMATIC, NORMAL INSPECTION, NORMOCEPHALIC - Eye Exam Eye Exam: EOMI, Normal appearance, PERRL Pupil Exam: NORMAL ACCOMODATION, PERRL - ENT Exam ENT Exam: Mucous Membranes Moist, Normal Exam - Neck Exam Neck Exam: Full ROM, Normal Inspection. absent: Lymphadenopathy - Respiratory Exam Respiratory Exam: Clear to Ausculation Bilateral, NORMAL BREATHING PATTERN - Cardiovascular Exam Cardiovascular Exam: REGULAR RHYTHM, +S1, +S2. absent: Murmur - GI/Abdominal Exam GI & Abdominal Exam: Soft, Normal Bowel Sounds. absent: Tenderness - Rectal Exam Rectal Exam: NORMAL INSPECTION - Exam Exam: Circumcision, NORMAL INSPECTION External exam: NORMAL EXTERNAL EXAM Speculum exam: NORMAL SPECULUM EXAM Bimanual exam: NORMAL BIMANUAL EXAM - Extremities Exam Extremities Exam: Full ROM, Normal Capillary Refill, Normal Inspection. absent: Joint Swelling, Pedal Edema - Back Exam Back Exam: NORMAL INSPECTION - Neurological Exam Neurological Exam: Alert, Awake, CN II-XII Intact, Normal Gait, Oriented x3 - Psychiatric Exam Psychiatric exam: Normal Affect, Normal Mood - Skin Skin Exam: Erythema, Rash Additional comments: cellulitis less Assessment and Plan (1) HIV (human immunodeficiency virus infection) Status: Chronic (2) Cellulitis Status: Acute (3) Abscess Status: Acute (4) Cellulitis and abscess of lower extremity Status: Acute - Assessment and Plan (Free Text) Assessment: await cultures cont IV then PO antibiotics wound care
[2018-10-08] MEDS ORDERED: Hydrogen Peroxide 237 ML SOL TP ONE (14:09)
--- NOTE | 2018-10-08 14:12 | PQF ---
PROVIDER RESPONSE TEXT: multiple sites of erythematous lesions on bilateral thighs REVIEWER QUERY TEXT: Documentation Clarification Your help is requested in clarifying the following clinical documentation, if you can please further specify in the medical record and discharge summary. Documentation of Cellulitis. Please list the sites of cellulitis . The patient's Clinical Indicators include: Presented to the ED for evaluation of swelling, redness, pain and on bilateral thighs and right lower quadrant for the past several days associated with a tactile fever and chills. Rx: IVAB Query created by: Viridiana Harrell on 10/07/2018 9:58 AM Electronically signed by: Mark Dwyer 10/08/2018 2:09 PM
[2018-10-09] MEDS: Piperacillin/Tazobact 3.375 GM in Sodium Chloride 0.9% 100 ML IVPB SCH ×4 (06:13→23:53)
[2018-10-09 06:17] LABS: BASO # 0.1 K/uL (0.0-0.2); BASO % 1.1 % (0.0-2.0); EOS # 0.2 K/uL (0.0-0.7); EOS % 3.9 % (0.0-4.0); HEMOGLOBIN 11.5 g/dL (12.0-18.0); LYMPH # 1.4 K/uL (1.0-4.3); LYMPH % 25.8 % (20.0-40.0); MEAN CELL VOLUME 81.3 fl (80.0-94.0); MEAN CORPUSCULAR HEMOGLOBIN 27.2 pg (27.0-31.0); MEAN CORPUSCULAR HGB CONC 33.5 g/dL (33.0-37.0); MEAN PLATELET VOLUME 7.1 fl (7.2-11.7); MONO # 0.8 K/uL (0.0-0.8); MONO % 15.5 % (0.0-10.0); NEUT # 2.9 K/uL (1.8-7.0); NEUT % 53.7 % (50.0-75.0); NRBC % 0.1 % (0.0-0.0); RBC 4.24 Mil/uL (4.40-5.90); RED CELL DISTRIBUTION WIDTH 16.7 % (11.5-14.5); WHITE BLOOD COUNT 5.4 K/uL (4.8-10.8)
[2018-10-09 06:23] LABS: ALB/GLOB RATIO 0.9 (1.0-2.1); ALBUMIN 3.4 g/dL (3.5-5.0); ALT/SGPT 25 U/L (21-72); AST/SGOT 33 U/L (17-59); BLOOD UREA NITROGEN 14 mg/dl (9-20); CALCIUM 8.8 mg/dL (8.4-10.2); GFR NON-AFRICAN AMERICAN > 60
[2018-10-09] MEDS: [UNRECOGNIZED DRUG - OTHER] PO SCH (09:05)
[2018-10-09] MEDS: Pantoprazole 40 mg EC Tab PO SCH (09:05)
[2018-10-09] MEDS: Hydrogen Peroxide 237 ML SOL TP SCH (09:06)
--- NOTE | 2018-10-09 18:23 | CP.PCM.PN ---
Subjective - Date & Time of Evaluation Date of Evaluation: 10/09/18 Time of Evaluation: 11:00 - Subjective Subjective: patient seen and examined at bedside. Interim events noted No complaints offered at this time denies cp/sob/fever/chills. available diagnostic data reviewed Review of Systems All systems: reviewed and no additional remarkable complaints except mentioned above Objective Vital Signs Stable - Constitutional Appears: Non-toxic, No Acute Distress Head Exam: NORMAL INSPECTION Eye Exam: Normal appearance Respiratory Exam: NORMAL BREATHING PATTERN Cardiovascular Exam: +S1, +S2 GI & Abdominal Exam: Soft Neurological Exam: Alert, Awake Psychiatric exam: Normal Affect, Normal Mood Skin Exam: Normal Color, Warm Assessment and Plan monitor vitals monitor labs Cont meds Cont tx consultants appreciated input MRSA positive, pending ID recommendations rest of plan as ordered Objective - Vital Signs/Intake and Output Vital Signs (last 24 hours): Temp Pulse Resp BP Pulse Ox 97.6 F 96 H 18 132/63 98 10/09/18 16:32 10/09/18 16:32 10/09/18 16:32 10/09/18 16:32 10/09/18 16:32 - Medications Medications: Current Medications Acetaminophen (Tylenol 325mg Tab) 650 mg PO Q6 PRN PRN Reason: Fever >100.4 F Acetaminophen (Tylenol 325mg Tab) 650 mg PO Q4 PRN PRN Reason: Pain, Mild (1-3) Last Admin: 10/06/18 18:15 Dose: 650 mg Home Med (Elviteg/Cob/Emtri/Tenof Alafen [Genvoya Tablet]) 1 each PO DAILY [facility] Last Admin: 10/09/18 09:05 Dose: 1 each Hydrogen Peroxide (Hydrogen Peroxide 237ml) 237 ml TP DAILY [facility] Last Admin: 10/09/18 09:06 Dose: 237 ml Vancomycin HCl 1 gm/ Sodium (Chloride) 250 mls @ 166.667 mls/hr IVPB Q12 [facility]; Protocol Last Admin: 10/09/18 09:04 Dose: 166.667 mls/hr Piperacillin Sod/Tazobactam (Sod 3.375 gm/ Sodium Chloride) 100 mls @ 100 mls/hr IVPB Q6H [facility]; Protocol Last Admin: 10/09/18 17:51 Dose: 100 mls/hr Ketorolac Tromethamine (Toradol) 30 mg IVP Q6 PRN PRN Reason: Pain, moderate (4-7) Last Admin: 10/09/18 06:12 Dose: 30 mg Mupirocin (Bactroban Ointment) 1 applic TOP BID [facility] Last Admin: 10/09/18 17:52 Dose: 1 applic Ondansetron HCl (Zofran Inj) 4 mg IVP Q4 PRN PRN Reason: Nausea/Vomiting Pantoprazole Sodium (Protonix Ec Tab) 40 mg PO DAILY [facility] Last Admin: 10/09/18 09:05 Dose: 40 mg - Labs Labs: 10/09/18 05:40 10/09/18 05:40 Assessment and Plan (1) MRSA (methicillin resistant staph aureus) culture positive Status: Acute (2) Cellulitis Status: Acute (3) HIV (human immunodeficiency virus infection) Status: Chronic
[2018-10-09] MEDS: Tmp-Smz 800 mg-160 mg DS Tab PO SCH (23:56)
[2018-10-10 00:52] VITALS: PULSE 86
--- NOTE | 2018-10-10 02:01 | CP.PCM.PN ---
Subjective - Date & Time of Evaluation Date of Evaluation: 10/08/18 Time of Evaluation: 07:45 - Subjective Subjective: Pt seen and assessed at bedside. Reports doing well. Only new complaint is the day prior, right thigh wound blister popped, with blood coming out. Wounds have been covered with gauze dressings. Infectious disease is on consult, the pt is receiving antibiotics for cellulitis. Review of Systems - Review of Systems All systems: reviewed and no additional remarkable complaints except (wound/blister on right thigh popped) Objective - Vital Signs/Intake and Output Vital Signs (last 24 hours): Temp Pulse Resp BP Pulse Ox 97.9 F 86 18 123/64 99 10/10/18 00:52 10/10/18 00:52 10/10/18 00:52 10/10/18 00:52 10/10/18 00:52 - Medications Medications: Current Medications Acetaminophen (Tylenol 325mg Tab) 650 mg PO Q6 PRN PRN Reason: Fever >100.4 F Acetaminophen (Tylenol 325mg Tab) 650 mg PO Q4 PRN PRN Reason: Pain, Mild (1-3) Last Admin: 10/06/18 18:15 Dose: 650 mg Home Med (Elviteg/Cob/Emtri/Tenof Alafen [Genvoya Tablet]) 1 each PO DAILY [facility] Last Admin: 10/09/18 09:05 Dose: 1 each Hydrogen Peroxide (Hydrogen Peroxide 237ml) 237 ml TP DAILY [facility] Last Admin: 10/09/18 09:06 Dose: 237 ml Vancomycin HCl 1 gm/ Sodium (Chloride) 250 mls @ 166.667 mls/hr IVPB Q12 [facility]; Protocol Last Admin: 10/09/18 21:28 Dose: 166.667 mls/hr Piperacillin Sod/Tazobactam (Sod 3.375 gm/ Sodium Chloride) 100 mls @ 100 mls/hr IVPB Q6H [facility]; Protocol Last Admin: 10/09/18 23:53 Dose: 100 mls/hr Ketorolac Tromethamine (Toradol) 30 mg IVP Q6 PRN PRN Reason: Pain, moderate (4-7) Last Admin: 10/09/18 06:12 Dose: 30 mg Mupirocin (Bactroban Ointment) 1 applic TOP BID [facility] Last Admin: 10/09/18 17:52 Dose: 1 applic Ondansetron HCl (Zofran Inj) 4 mg IVP Q4 PRN PRN Reason: Nausea/Vomiting Pantoprazole Sodium (Protonix Ec Tab) 40 mg PO DAILY [facility] Last Admin: 10/09/18 09:05 Dose: 40 mg Trimethoprim/Sulfamethoxazole (Bactrim Ds Tab) 1 tab PO Q12 [facility]; Protocol Last Admin: 10/09/18 23:56 Dose: 1 tab - Labs Labs: 10/09/18 05:40 10/09/18 05:40 - Constitutional Appears: Well - Head Exam Head Exam: ATRAUMATIC, NORMAL INSPECTION, NORMOCEPHALIC - Eye Exam Eye Exam: EOMI, Normal appearance, PERRL Pupil Exam: NORMAL ACCOMODATION, PERRL - ENT Exam ENT Exam: Mucous Membranes Moist, Normal Exam - Neck Exam Neck Exam: Full ROM, Normal Inspection - Respiratory Exam Respiratory Exam: Clear to Ausculation Bilateral, NORMAL BREATHING PATTERN - Cardiovascular Exam Cardiovascular Exam: REGULAR RHYTHM, +S1, +S2 - GI/Abdominal Exam GI & Abdominal Exam: Soft, Normal Bowel Sounds - Extremities Exam Extremities Exam: Full ROM, Normal Capillary Refill, Normal Inspection - Back Exam Back Exam: NORMAL INSPECTION - Neurological Exam Neurological Exam: Alert, Awake, CN II-XII Intact, Oriented x3 - Psychiatric Exam Psychiatric exam: Normal Affect, Normal Mood - Skin Skin Exam: Dry, Normal Color, Warm Additional comments: open wounds and blistered areas to thighs and abdomen. Assessment and Plan (1) Cellulitis Assessment & Plan: 1.) Cellulitis -On vanco and zosyn antibiotics. -Infectious disease consult appreciated. -Monitor for s/s infection. -Pending wound culture. -keep wounds clean and dry. -continue current tx. Status: Acute
[2018-10-10] MEDS: Piperacillin/Tazobact 3.375 GM in Sodium Chloride 0.9% 100 ML IVPB SCH ×2 (05:49→12:22)
[2018-10-10 08:18] VITALS: BP 108/59; RESP 20; TEMP 98.3; O2SAT 97
[2018-10-10] MEDS: [UNRECOGNIZED DRUG - OTHER] PO SCH (09:26)
[2018-10-10] MEDS: Pantoprazole 40 mg EC Tab PO SCH (09:27)
[2018-10-10] MEDS: Tmp-Smz 800 mg-160 mg DS Tab PO SCH (09:27)
[2018-10-10] MEDS: Hydrogen Peroxide 237 ML SOL TP SCH (09:33)
--- NOTE | 2018-10-10 10:03 | PQF ---
PROVIDER RESPONSE TEXT: In light of latest labs he is clearly HIV /AIDS REVIEWER QUERY TEXT: Documentation Clarification Your help is requested in clarifying the following clinical documentation, if you can please further specify in the medical record and discharge summary. Absolute CD4 count < 20. Your response to the previous query for HIV status is below.. Shall AIDS B20 be coded ? Previous query response: Patients last recorded CD4 count was >300 According to CDC criteria he would not be considered AIDS Despite this he clearly has immune dysfunction with severe symptomatic skin/ soft tissue infection He is symptomatic HIV positive The patient's Clinical Indicators include: Admitted with multiple infected maculopapular lesions on thighs and RLQ . He had multiple bites which became infected after recent trip to [facility] as per ID consult. Lymphocyte subset ordered and pending results Rx: Query created by: Viridiana Harrell on 10/09/2018 6:44 AM Electronically signed by: Armando Valentin MD 10/09/2018 10:27 PM
[2018-10-10] MEDS ORDERED: Mupirocin 2% Oint 1GM UD TOP SCH (11:00)
--- NOTE | 2018-10-10 13:45 | CP.PCM.PN ---
Subjective - Date & Time of Evaluation Date of Evaluation: 10/10/18 Time of Evaluation: 08:00 - Subjective Subjective: cellulitis improving + MRSA Objective - Vital Signs/Intake and Output Vital Signs (last 24 hours): Temp Pulse Resp BP Pulse Ox 98.3 F 86 20 108/59 L 97 10/10/18 08:18 10/10/18 08:18 10/10/18 08:18 10/10/18 08:18 10/10/18 08:18 - Medications Medications: Current Medications Acetaminophen (Tylenol 325mg Tab) 650 mg PO Q6 PRN PRN Reason: Fever >100.4 F Acetaminophen (Tylenol 325mg Tab) 650 mg PO Q4 PRN PRN Reason: Pain, Mild (1-3) Last Admin: 10/06/18 18:15 Dose: 650 mg Home Med (Elviteg/Cob/Emtri/Tenof Alafen [Genvoya Tablet]) 1 each PO DAILY [facility] Last Admin: 10/10/18 09:26 Dose: 1 each Hydrogen Peroxide (Hydrogen Peroxide 237ml) 237 ml TP DAILY [facility] Last Admin: 10/10/18 09:33 Dose: 237 ml Vancomycin HCl 1 gm/ Sodium (Chloride) 250 mls @ 166.667 mls/hr IVPB Q12 [facility]; Protocol Last Admin: 10/10/18 09:28 Dose: 166.667 mls/hr Piperacillin Sod/Tazobactam (Sod 3.375 gm/ Sodium Chloride) 100 mls @ 100 mls/hr IVPB Q6H [facility]; Protocol Last Admin: 10/10/18 12:22 Dose: 100 mls/hr Ketorolac Tromethamine (Toradol) 30 mg IVP Q6 PRN PRN Reason: Pain, moderate (4-7) Last Admin: 10/09/18 06:12 Dose: 30 mg Mupirocin (Bactroban Ointment) 1 applic TOP BID [facility] Last Admin: 10/10/18 10:59 Dose: Not Given Ondansetron HCl (Zofran Inj) 4 mg IVP Q4 PRN PRN Reason: Nausea/Vomiting Pantoprazole Sodium (Protonix Ec Tab) 40 mg PO DAILY [facility] Last Admin: 10/10/18 09:27 Dose: 40 mg Trimethoprim/Sulfamethoxazole (Bactrim Ds Tab) 1 tab PO Q12 [facility]; Protocol Last Admin: 10/10/18 09:27 Dose: 1 tab - Labs Labs: 10/09/18 05:40 10/09/18 05:40 - Constitutional Appears: Well - Head Exam Head Exam: ATRAUMATIC, NORMAL INSPECTION, NORMOCEPHALIC - Eye Exam Eye Exam: EOMI, Normal appearance, PERRL Pupil Exam: NORMAL ACCOMODATION, PERRL - ENT Exam ENT Exam: Mucous Membranes Moist, Normal Exam - Neck Exam Neck Exam: Full ROM, Normal Inspection. absent: Lymphadenopathy - Respiratory Exam Respiratory Exam: Clear to Ausculation Bilateral, NORMAL BREATHING PATTERN - Cardiovascular Exam Cardiovascular Exam: REGULAR RHYTHM, +S1, +S2. absent: Murmur - GI/Abdominal Exam GI & Abdominal Exam: Soft, Normal Bowel Sounds. absent: Tenderness - Rectal Exam Rectal Exam: Deferred - Exam Exam: NORMAL INSPECTION - Extremities Exam Extremities Exam: Full ROM, Normal Capillary Refill, Normal Inspection. absent: Joint Swelling, Pedal Edema - Back Exam Back Exam: NORMAL INSPECTION - Neurological Exam Neurological Exam: Alert, Awake, CN II-XII Intact, Normal Gait, Oriented x3 - Psychiatric Exam Psychiatric exam: Normal Affect, Normal Mood - Skin Skin Exam: Dry, Erythema, Intact, Normal Color, Rash Assessment and Plan (1) HIV (human immunodeficiency virus infection) Status: Chronic (2) Cellulitis Status: Acute (3) Abscess Status: Acute (4) Cellulitis and abscess of lower extremity Status: Acute - Assessment and Plan (Free Text) Assessment: d/c on PO Bactrim plus antivirals
--- NOTE | 2018-10-12 22:28 | CP.PCM.DIS ---
Provider - Provider Date of Admission: 10/05/18 21:54 Attending physician: Andrew Anton MD Consults: 10/05/18 22:13 Infectious Disease Consult Stat Comment: Consulting Provider: Armando Valentin Consulting Physician: Armando Valentin Reason for Consult: cellulitis with early abscess 10/07/18 15:29 Wound Care [Nursing Referral for Wound Care] Routine Comment: Physician Instructions: Reason For Exam: noted with opening to right posterior thigh Time Spent in preparation of Discharge (in minutes): 30 Diagnosis - Discharge Diagnosis (1) Abscess Status: Acute (2) MRSA (methicillin resistant staph aureus) culture positive Status: Acute (3) HIV (human immunodeficiency virus infection) Status: Chronic Hospital Course - Lab Results Lab Results: Micro Results 10/05/18 18:10 Blood-Venous Blood Culture - Final NO GROWTH AFTER 5 DAYS 10/05/18 18:10 Blood-Venous Gram Stain - Final TEST NOT PERFORMED 10/05/18 19:39 Blood-Venous Blood Culture - Final NO GROWTH AFTER 5 DAYS 10/05/18 19:39 Blood-Venous Gram Stain - Final TEST NOT PERFORMED 10/06/18 14:05 Thigh - Right Gram Stain - Final 10/06/18 14:05 Thigh - Right Wound Culture - Final Methicillin Resistant S Aureus Most Recent Lab Values WBC 5.4 K/uL (4.8-10.8) 10/09/18 05:40 RBC 4.24 Mil/uL (4.40-5.90) L 10/09/18 05:40 Hgb 11.5 g/dL (12.0-18.0) L 10/09/18 05:40 Hct 34.4 % (35.0-51.0) L 10/09/18 05:40 MCV 81.3 fl (80.0-94.0) 10/09/18 05:40 MCH 27.2 pg (27.0-31.0) 10/09/18 05:40 MCHC 33.5 g/dL (33.0-37.0) 10/09/18 05:40 RDW 16.7 % (11.5-14.5) H 10/09/18 05:40 Plt Count 501 K/uL (130-400) H 10/09/18 05:40 MPV 7.1 fl (7.2-11.7) L 10/09/18 05:40 Neut % (Auto) 53.7 % (50.0-75.0) 10/09/18 05:40 Lymph % (Auto) 25.8 % (20.0-40.0) 10/09/18 05:40 Shelby % (Auto) 15.5 % (0.0-10.0) H 10/09/18 05:40 Eos % (Auto) 3.9 % (0.0-4.0) 10/09/18 05:40 Baso % (Auto) 1.1 % (0.0-2.0) 10/09/18 05:40 Neut # (Auto) 2.9 K/uL (1.8-7.0) 10/09/18 05:40 Lymph # (Auto) 1.4 K/uL (1.0-4.3) 10/09/18 05:40 Shelby # (Auto) 0.8 K/uL (0.0-0.8) 10/09/18 05:40 Eos # (Auto) 0.2 K/uL (0.0-0.7) 10/09/18 05:40 Baso # (Auto) 0.1 K/uL (0.0-0.2) 10/09/18 05:40 pO2 23 mm/Hg (30-55) L 10/05/18 20:04 VBG pH 7.37 (7.32-7.43) 10/05/18 20:04 VBG pCO2 51 mmHg (40-60) 10/05/18 20:04 VBG HCO3 26.0 mmol/L 10/05/18 20:04 VBG Total CO2 31.1 mmol/L (22-28) H 10/05/18 20:04 VBG O2 Sat (Calc) 40.2 % (40-65) 10/05/18 20:04 VBG Base Excess 3.2 mmol/L (0.0-2.0) H 10/05/18 20:04 VBG Potassium 4.0 mmol/L (3.6-5.2) 10/05/18 20:04 Sodium 135.0 mmol/L (132-148) 10/05/18 20:04 Chloride 104.0 mmol/L (98-107) 10/05/18 20:04 Glucose 95 mg/dL (75-110) 10/05/18 20:04 Lactate 0.8 mmol/L (0.7-2.1) 10/05/18 20:04 FiO2 21.0 % 10/05/18 20:04 Crit Value Called To Adam conroy 10/05/18 19:50 Crit Value Called By Eduard 10/05/18 19:50 Crit Value Read Back Y 10/05/18 19:50 Blood Gas Notified Time 195610/05/18 19:50 Sodium 138 mmol/l (132-148) 10/09/18 05:40 Potassium 4.2 MMOL/L (3.6-5.0) 10/09/18 05:40 Chloride 106 mmol/L (98-107) 10/09/18 05:40 Carbon Dioxide 25 mmol/L (22-30) 10/09/18 05:40 Anion Gap 11 (10-20) 10/09/18 05:40 BUN 14 mg/dl (9-20) 10/09/18 05:40 Creatinine 1.0 mg/dl (0.8-1.5) 10/09/18 05:40 Est GFR ( Amer) > 60 10/09/18 05:40 Est GFR (Non-Af Amer) > 60 10/09/18 05:40 Random Glucose 97 mg/dL (75-110) 10/09/18 05:40 Calcium 8.8 mg/dL (8.4-10.2) 10/09/18 05:40 Magnesium 2.1 MG/DL (1.6-2.3) 10/09/18 05:40 Total Bilirubin 0.2 mg/dl (0.2-1.3) 10/09/18 05:40 AST 33 U/L (17-59) 10/09/18 05:40 ALT 25 U/L (21-72) 10/09/18 05:40 Alkaline Phosphatase 77 U/L (38-126) 10/09/18 05:40 Total Protein 7.2 G/DL (6.3-8.2) 10/09/18 05:40 Albumin 3.4 g/dL (3.5-5.0) L 10/09/18 05:40 Globulin 3.8 gm/dL (2.2-3.9) 10/09/18 05:40 Albumin/Globulin Ratio 0.9 (1.0-2.1) L 10/09/18 05:40 Venous Blood Potassium 4.0 mmol/L (3.6-5.2) 10/05/18 20:04 Vancomycin Trough < 5.0 ug/mL (5.0-10.0) L 10/07/18 08:35 Absolute Lymphs (Flow) 1111 Cells/mcL (850-3900) 10/06/18 04:55 % CD4 Cells 1 Percent (30-61) L 10/06/18 04:55 Absolute CD4 Count <20 Cells/mcL (490-1740) L 10/06/18 04:55 T-Help/Suppress Ratio 0.02 Ratio (0.86-5.00) L 10/06/18 04:55 % CD8 Cells 64 Percent (12-42) H 10/06/18 04:55 Absolute CD8 Count 710 Cells/mcL (180-1170) 10/06/18 04:55 HIV-1 RNA Qnt (RT-PCR) 2.07 (Not Detected) H 10/06/18 04:55 - Hospital Course Hospital Course: This is a 27 y/o male admitted for multiple abscess on the thigh and lower abdomen which started after coming from vacation in [facility]. He has a hx of HIV. He was started on iv antibiotics and ID was called. C and S showed MRSA> He responded well to iv antibiotics and was sent home on po meds for 2 weeks. He was advised to follow up with his PMD in a week. Discharge Exam - Head Exam Head Exam: NORMAL INSPECTION - Eye Exam Eye Exam: Normal appearance - Respiratory Exam Respiratory Exam: Chest Wall Tenderness - Cardiovascular Exam Cardiovascular Exam: REGULAR RHYTHM - GI/Abdominal Exam GI & Abdominal Exam: Normal Bowel Sounds - Neurological Exam Neurological exam: CN II-XII Intact - Psychiatric Exam Psychiatric exam: Normal Mood Discharge Plan - Discharge Medications Prescriptions: Sulfamethoxazole/Trimethoprim [Bactrim DS Tab] 1 tab PO Q12 #21 tab - Follow Up Plan Condition: FAIR Disposition: HOME/ ROUTINE Instructions: Wound Care (DC), Mupirocin, Cellulitis (DC) Additional Instructions: follow up with primary MD 1 week cleanse wound with half peroxide and saline and cover with dressing daily Referrals: Armando Valentin MD [Family Provider] -
== END 2018-10-10 15:45 | disposition home or self-care (01) | DRG 714 ==
LOC: H.ER 18:26 → H.ERHOLD 21:54 → H.MEDSURG1 23:00
PROVIDERS: ADMIT Family Medicine; ATTEND Family Medicine
PROC: 3E02340 Introduction of Influenza Vaccine into Muscle, Percutaneous Approach (ICD-10-PCS; principal; 2018-10-06)
PROC: 3E0234Z Introduction of Serum, Toxoid and Vaccine into Muscle, Percutaneous Approach (ICD-10-PCS; 2018-10-06)
DX: L03.115 Cellulitis of right lower limb (principal); B20 Human immunodeficiency virus [HIV] disease; L03.116 Cellulitis of left lower limb; L02.416 Cutaneous abscess of left lower limb; L02.415 Cutaneous abscess of right lower limb; B95.62 Methicillin resistant Staphylococcus aureus infection as the cause of diseases classified elsewhere; K29.70 Gastritis, unspecified, without bleeding; Z87.891 Personal history of nicotine dependence; Z23 Encounter for immunization